=== PATIENT | female | born 1965 | race Caucasian/White ===

== ENCOUNTER 2016-10-25 13:43 | Inpatient (IN) ==
--- NOTE | 2016-10-25 14:07 | Emergency Department Note ---
Santiago Dior Emily, am scribing for, and in the presence of, Trevor Rendon MD 14:01. Julieta Dior James D, MD, personally performed the services described in this documentation, ascribed by Fernanda Henderson in my presence, and it is both accurate and complete 401 . Arrival - Arrival Chief Complaint: Shortness of Breath Stated Complaint: low SAT/in 80's/sent by clinic ED Nursing Triage Note: pt was at wound care when she had low sats. pt has been sob since monday. +porductive cough Mode of Arrival: Ambulatory Limitations: No Limitations Source: Patient Time Seen by Provider: 10/25/16 13:52 - History of Present Illness HPI Narrative: Pt is a 51 y/o female who came to ED from Wound Care for further evaluation of low stats. Pt states having swelling in lower extremities but not as bad today. Pt is having SOB since Monday and productive cough, but denies fever or chest pain. Pt reports glucose is elevated at 350 and has had hx of kidney failure, along with being told she had CHF. Pt notes one month ago she was treated for bronchitis with steroids and abx. Pt is being followed by [facility] for wound care. Onset (ago): hour(s) Consistency: constant Severity: mild, moderate Severity scale (1-10): 4 Quality: fullness Allergies/Adverse Reactions: Allergies Allergy/AdvReac Type Severity Reaction Status Date / Time sulfacetamide Allergy Unknown Verified 10/13/15 15:34 [From Sulfacet-R] sulfur dioxide Allergy Unknown Verified 05/19/16 09:10 Review of System - Review of System 12 point system: reviewed and no additional remarkable complaints except as stated - Review of System Constitutional: Absent: fever Respiratory: Present: cough (productive), respiratory distress (SOB) Cardiovascular: Present: edema (lower extremities). Absent: chest pain Gastrointestinal: Absent: abdominal pain, nausea, vomiting Musculoskeletal: Absent: arm pain Skin: Absent: rash Neurological: Absent: headache Medical,Surgical,& Family Hx - Social History Smoking Status: Never smoker Frequency of Alcohol Use: None Type of Drug Use: None Marital Status: Single Functional capacity: independent ambulation Exam Vital Signs: Vital Signs Temperature 98.0 F 10/25/16 14:00 Pulse Rate 68 10/25/16 14:30 Respiratory Rate 24 10/25/16 14:30 Blood Pressure 137/61 10/25/16 14:30 O2 Sat by Pulse Oximetry 96 10/25/16 14:30 GENERAL: This is a well-nourished well-developed white female in no apparent distress. VITAL SIGNS: Reviewed HEENT: Head is atraumatic and normocephalic. Pupils are equal round react to light. Extraocular movements are intact. Oropharynx is benign with moist mucous membranes. NECK: Neck is soft and supple without tenderness. There are no masses. There is no lymphadenopathy. LUNGS: Bibasilar rhonchi. Chest rises symmetrically. There is no chest wall tenderness. CV: Heart is regular rate and rhythm without murmurs rubs or gallops. ABDOMEN: Abdomen is soft, nontender to palpation. There are no abdominal abnormal masses palpated. There is no organomegaly. Bowel sounds are present and active. SKIN: Skin is warm and dry. No rash. EXTREMITIES: Patient has full range of motion without tenderness. There is 1-2 + pitting pedal edema. NEUROLOGIC: Awake alert and oriented 4. Cranial nerves II through XII are grossly intact. Motor is 5 over 5 in all extremities bilaterally. Course - Consultations Consultation #1: Discussed with hospitalist. Patient will be admitted to their service. Time: 15:36 Results - Labs CBC & BMP: 10/25/16 14:28 10/25/16 14:28 Lab Results: I have reviewed the patients labs Labs: Laboratory Tests 10/25/16 14:28 WBC 9.0 RBC 3.37 L Hgb 9.3 L Hct 28.4 L MCV 84.3 L Plt Count 239 Neut % (Auto) 74.0 H Lymph % (Auto) 16.8 L Laboratory Tests 10/25/16 10/25/16 10/25/16 14:28 14:28 14:28 INR 2.6 PT Patient/Control Mix 29.1 Circ Anticoag PTT 45.4 H Sodium 136 Potassium 3.9 Chloride 101 Carbon Dioxide 26 BUN 24 H Creatinine 1.60 H GFR Calculation 47 Glucose 237 H Lactic Acid Troponin I < 0.015 Total Protein 6.2 L Albumin 3.3 L Urine Color Yellow Urine Appearance Clear Urine pH 6.0 Ur Specific [place] 1.007 Urine Protein 100 Urine Glucose (UA) >=500 Urine Urobilinogen < 2.0 H Urine Leukocytes Moderate H Urine RBC 2 Urine WBC 5 Ur Squamous Epith Cells Occasional 10/25/16 14:28 INR PT Patient/Control Mix Circ Anticoag PTT Sodium Potassium Chloride Carbon Dioxide BUN Creatinine GFR Calculation Glucose Lactic Acid 1.6 Troponin I Total Protein Albumin Urine Color Urine Appearance Urine pH Ur Specific [place] Urine Protein Urine Glucose (UA) Urine Urobilinogen Urine Leukocytes Urine RBC Urine WBC Ur Squamous Epith Cells Laboratory Tests 10/25/16 14:28 B-Natriuretic Peptide 511 H - EKG EKG results: interpreted by ERMD - Impressions EKG: Normal sinus rhythm with rate of 68, occasional PVCs, nonspecific ST-T wave changes, normal axis. - Diagnostic Findings Procedure: Chest x-ray: image reviewed by me, report reviewed by me ( Cardiomegaly, old median sternotomy, increased pulmonary markings bilaterally.) Disposition Clinical Impression: Dyspnea, Diabetes mellitus, CHF (congestive heart failure), Chronic anticoagulation Case discussed with: patient Disposition: Still a Patient Condition: Stable Time of Disposition: 15:34
--- NOTE | 2016-10-25 14:20 | EKG Report ---
Stationary ECG Study [facility] ER Test Date: 10/25/2016 1:57:31 PM Pat Name: MAUDE VARELA Department: Room: Gender: F [employer]: : 1965 Requested by: Trevor Moran Order Number: [id number] Reading MD: TASHIA BRAGG Intervals [place] Rate: 68 P: 23 NH: 204 QRS: 37 QRSD: 102 T: 42 QT: 416 QTc: 433 Interpretive Statements SINUS RHYTHM WITH OCCASIONAL VENTRICULAR PREMATURE COMPLEXES Electronically Signed On 10-25-16 15:53:16 CDT by TASHIA BRAGG [email or web address]
--- NOTE | 2016-10-25 14:20 | XRay Report ---
XR chest 1V portable Indication: Shortness of breath. Chest one view: Comparison 04/07/2009. Cardiomegaly has developed with mild central pulmonary vascular congestion. Increased interstitial markings of peripheral lungs are more pronounced as well. Scattered calcified granulomata are present. No infiltrates. Right hemidiaphragm remains elevated. Median sternotomy wires again noted. Impression: CHF decompensation. PROCEDURE INTERPRETED AT [facility] DEPARTMENT OF RADIOLOGY Final Report Signed by: Leandro Morales M.D.
[2016-10-25 14:38] LABS: Basophils % 0.4 % (0.0-0.8); Eosinophils # 0.1 10*3/uL (0.0-0.87); Eosinophils % 0.9 % (0.00-10.9); Hematocrit 28.4 VOL% (35.7-47.0); Hemoglobin 9.3 GM/DL (12.0-16.0); Immature Granulocytes % 0.4 %; Immature Granulocytes Absolute 0.04 #; Lymphocytes # 1.5 10*3/uL (1.4-4.0); Lymphocytes % 16.8 % (21.3-54.2); Mean Corpuscular HGB Conc 32.7 GM/DL (32-36); Mean Corpuscular Hemoglobin 28 PG (27-34); Mean Corpuscular Volume 84.3 FL (87-102); Monocytes # 0.7 10*3/uL (0.11-0.8); Monocytes % 7.5 % (1.7-12.7); NRBC # 0.02 10*3/uL; Neutrophils # 6.6 10*3/uL (1.4-7.4); Platelet Count 239 T/CUMM (130-400); Red Blood Count 3.37 MC/CUMM (3.8-5.5); Red Cell Distribution Width 15.5 % (9.3-17.3)
[2016-10-25 14:49] LABS: INR 2.6
[2016-10-25 14:50] LABS: Apearance,Urine CLEAR (Clear); Bilirubin,Urine Negative (Negative); Blood, Urine Negative (Negative); Glucose,Urine (UA) >=500 mg/dL (Negative); Ketones,Urine Negative (Negative); Nitrite,Urine Negative (Negative); Protein,Urine 100 MG/DL; RBC,Urine 2 /HPF (0-4); Squamous Epithelial Cell,Urine Occasional /HPF (0-10); Urine Color Yellow (Yellow); Urine Specific Gravity 1.007 (1.001-1.035); Urine Urobilinogen < 2.0 EU/DL (0.2-1.0); WBC,Urine 5 /HPF (0-6)
[2016-10-25 14:53] LABS: PT Patient Result 29.1 SECS; Partial Thromboplastin Time 45.4 SECS (0-40)
[2016-10-25 15:03] LABS: Alanine Aminotransferase 23 U/L (13-56); Albumin 3.3 G/DL (3.4-5.0); Alkaline Phosphatase 57 U/L (45-117); Aspartate Amino Transferase 20 U/L (0-37); Blood Urea Nitrogen 24 MG/DL (7-18); Calcium 8.9 MG/DL (8.5-10.1); Glucose 237 MG/DL (74-106); Potassium 3.9 MMOL/L (3.5-5.1); Sodium 136 MMOL/L (136-145); Total Protein 6.2 G/DL (6.4-8.3); Troponin I Only < 0.015 NG/ML (0.00-0.045)
[2016-10-25] MEDS ORDERED: FUROSEMIDE 40 MG/4 ML VIAL IV STA (15:05)
[2016-10-25] MEDS ORDERED: FUROSEMIDE 40 MG/4 ML VIAL ONE (15:29)
[2016-10-25] MEDS ORDERED: ZALEPLON 5 MG CAPSULE PO PRN (16:02)
[2016-10-25] MEDS ORDERED: DEXTROSE 50% 25 GM/50 ML SYRINGE IV PRN (16:02)
[2016-10-25] MEDS ORDERED: MAGNESIUM SULF RIDER 2 GM in PREMIX 1 EACH IV PRN (16:02)
[2016-10-25] MEDS ORDERED: GLUCAGON 1 MG VIAL IM PRN (16:02)
[2016-10-25] MEDS ORDERED: ONDANSETRON 4 MG/2 ML VIAL IV PRN (16:02)
[2016-10-25] MEDS ORDERED: ACETAMINOPHEN 325 MG TABLET PO PRN (16:02)
[2016-10-25] MEDS ORDERED: MAGNESIUM SULF RIDER 4 GM in PREMIX 1 EACH IV PRN (16:02)
--- NOTE | 2016-10-25 16:10 | Hospitalist History & Physical ---
Assessment and Plan (1) Chronic wound of extremity Status: Acute Current Visit: Yes (2) History of neuropathy Status: Acute Current Visit: Yes (3) Dyspnea Status: Acute Current Visit: Yes (4) Diabetes mellitus Status: Acute Current Visit: Yes (5) CHF (congestive heart failure) Status: Acute Current Visit: Yes (6) Chronic anticoagulation Status: Acute Assessment and plan: Our plan for this patient will be admitting her to our service. She will be admitted to telemetry. Will schedule her IV Lasix. She already received her first dose in the emergency room. Will consult [facility]. She is a patient of Dr. Quesada. Continue home meds as appropriate once they are confirmed. She is on chronic anticoagulation will need to continue to monitor her INR daily. We will monitor her chemistry daily and insulin sliding scale as needed Current Visit: Yes History of Present Illness Chief complaint: Shortness of breath History of present illness: Ms. Perez is a 51 year old female past medical history significant for congestive heart failure, pulmonary embolus, hypertension, heart rate flux, diabetes, neuropathy and chronic wounds who is been in her normal state of health for the past few days. Patient's has been noticing ever since Monday that she is requiring more pillows to sleep on at night.. She sleeps on for now. She is noticed that she has shortness of breath with least exertion an increase in her lower extremity swelling. She had just recently started back on her Lasix. In effort to get the fluid off. She went to her wound care clinic today. They noticed on her vital signs that her O2 sats were low. She was sent over here for further evaluation. I was consulted to admit her Allergies Allergy/AdvReac Type Severity Reaction Status Date / Time sulfacetamide Allergy Unknown Verified 10/13/15 15:34 [From Sulfacet-R] sulfur dioxide Allergy Unknown Verified 05/19/16 09:10 Medical,Surgical,& Family Hx - Medical History Cardio: History of: CHF, Hypertension Endocrine: History of: Diabetes Mellitus (NIDDM) Respiratory: History of: Pulmonary Embolism Other: History of: Miscellaneous Medical Problems (Chronic wounds and either COPD or asthma she does not know which) - Surgical History Additional Surgical History: Orthopedic procedure, tonsils and adenoids, hysterectomy, pulmonary embolus thrombectomy - Family History Family History: Reports;: Family Cancer, Family Diabetes, Family Heart Disease - Social History Smoking Status: Never smoker Frequency of Alcohol Use: None Type of Drug Use: None 12 point system: reviewed and no additional remarkable complaints except as stated Exam - Constitutional Vitals: Period Temp Pulse Resp BP Sys/Seay Pulse Ox Last 24 Hr 98.0 F-98.0 F 62-69 13-25 92-161/44-77 87-98 General appearance: over weight - Head Head exam: Present: normal inspection - Eye Eye exam: Present: EOMI Pupils: Present: VERONA - ENT ENT exam: Present: normal exam - Neck Neck exam: Present: normal inspection - Respiratory Respiratory exam: Present: rales - Cardiovascular Cardiovascular exam: Present: regular rate and rhythm - GI/Abdominal GI/Abdominal exam: Present: normal bowel sounds - Extremities Exam Extremities exam: Present: edema - Back Exam Back exam: Present: normal inspection - Neurological Exam Neurological exam: Present: alert, oriented X3 - Psychiatric Psychiatric exam: Present: normal affect, normal mood - Skin Skin exam: Present: normal color Results - Labs CBC & BMP: 10/25/16 14:28 10/25/16 14:28
[2016-10-25] MEDS ORDERED: INSULIN REGULAR 100 UNIT/ML SUBCUT SCH (18:00)
[2016-10-25] MEDS: INSULIN REGULAR 100 UNIT/ML SUBCUT SCH (22:00)
[2016-10-26] MEDS: GABAPENTIN 600 MG TABLET PO SCH ×3 (00:33→21:07)
[2016-10-26] MEDS: NORTRIPTYLINE 25 MG CAPSULE PO SCH ×3 (00:33→21:07)
[2016-10-26 05:29] LABS: Basophils # 0.1 10*3/uL (0.0-0.2); Basophils % 0.6 % (0.0-0.8); Eosinophils # 0.1 10*3/uL (0.0-0.87); Eosinophils % 1.4 % (0.00-10.9); Hematocrit 28.3 VOL% (35.7-47.0); Hemoglobin 8.9 GM/DL (12.0-16.0); Immature Granulocytes % 0.6 %; Immature Granulocytes Absolute 0.05 #; Lymphocytes # 1.6 10*3/uL (1.4-4.0); Lymphocytes % 18.3 % (21.3-54.2); Mean Corpuscular HGB Conc 31.4 GM/DL (32-36); Mean Corpuscular Hemoglobin 27 PG (27-34); Mean Corpuscular Volume 86.8 FL (87-102); Mean Platelet Volume 11.2 FL (9.6-12.0); Monocytes # 0.5 10*3/uL (0.11-0.8); Monocytes % 6.1 % (1.7-12.7); Neutrophils # 6.3 10*3/uL (1.4-7.4); Platelet Count 250 T/CUMM (130-400); Red Blood Count 3.26 MC/CUMM (3.8-5.5); Red Cell Distribution Width 15.5 % (9.3-17.3); White Blood Count 8.6 T/CUMM (4-12)
[2016-10-26 05:40] LABS: INR 2.2
[2016-10-26 05:48] LABS: PT Patient Result 24.8 SECS
[2016-10-26 06:19] LABS: Calcium 9.3 MG/DL (8.5-10.1); Osmolality,Calculated 285.8 MOS/KG (273-304)
--- NOTE | 2016-10-26 07:39 | Physician Query Form ---
CLICK EDIT DOCUMENT TO SELECT QUERY ANSWER --> OK --> SIGN Tova Ellis RN, CCDS Certified Clinical Bleacher [employer] W) [phone] (f) [phone] [email or web address] PROVIDERS: Make your selection(s) from the choices in EACH section by typing an "x" and enter comments in the comment section. Please use your independent medical judgment in providing your response. This request does not imply that any particular answer is desired or expected. CLINICAL INDICATORS: (Providers should not edit this section) The medical record indicates that the patient was admitted with acute CHF, SOB, BNP of 511# and the patient was treated with IV Lasix. Please provide further specificity regarding CHF. ACUITY: ( ) Acute ( ) Chronic (x) Acute on Chronic ( ) Clinically unable to determine TYPE: ( ) Systolic (HFrEF - heart failure with reduced systolic function/EF) (x ) Diastolic (HFpEF - heart failure with preserved systolic function/EF) ( ) Combined Systolic/Diastolic ( ) Other, please specify: ( ) Clinically unable to determine ( ) Past Medical History of Systolic CHF ( ) Past Medical History of Diastolic CHF ( ) Clinically unable to determine COMMENTS: PLEASE ALSO DOCUMENT RESPONSE IN PROGRESS NOTES AND/OR DISCHARGE SUMMARY Use of terms such as suspected, likely, or probable (associated with a specific diagnosis that is being evaluated, monitored, or treated as if it exists) are acceptable and can be restated in the discharge summary if not ruled out. MTDD
--- NOTE | 2016-10-26 07:40 | Physician Query Form ---
CLICK EDIT DOCUMENT TO SELECT QUERY ANSWER --> OK --> SIGN Tova Ellis RN, CCDS Certified Clinical Data Governance Consultant W) [phone] (f) [phone] [email or web address] PROVIDERS: Make your selection(s) from the choices in EACH section by typing an "x" and enter comments in the comment section. Please use your independent medical judgment in providing your response. This request does not imply that any particular answer is desired or expected. CLINICAL INDICATORS: (Providers should not edit this section) The medical record indicates that the patient was admitted with acute CHF, SOB, creatinine of 1.60 on the 15th and GFR of 47# on the 15th; Patient is being treated with Lasix for the CHF. Clarify which of the following most accurately represents the patient's renal status: ( ) Acute kidney injury (non-traumatic) ( ) Acute renal failure ( ) Acute renal failure with underlying Chronic Kidney Disease (CKD) - please provide stage below ( ) Acute renal failure with pathological renal lesion ( ) Acute renal failure with necrosis ( ) tubular ( ) medullary ( ) cortical (x ) CKD - please provide stage below ( ) End Stage Renal Disease ( ) Acute interstitial nephritis ( ) Hepatorenal syndrome ( ) Other, please specify: ( ) Clinically unable to determine Chronic Kidney Disease Stages Source: National Kid[employer] Foundation ( ) Stage I (eGFR > or = 90) ( ) Stage II (eGFR 60 - 89) (x ) Stage III (eGFR 30 - 59) ( ) Stage IV (eGFR 15 - 29) ( ) Stage V (eGFR < 15 or dialysis) COMMENTS: PLEASE ALSO DOCUMENT RESPONSE IN PROGRESS NOTES AND/OR DISCHARGE SUMMARY Use of terms such as suspected, likely, or probable (associated with a specific diagnosis that is being evaluated, monitored, or treated as if it exists) are acceptable and can be restated in the discharge summary if not ruled out. MTDD
[2016-10-26] MEDS ORDERED: amLODIPine 10 MG TABLET PO SCH (09:00)
[2016-10-26] MEDS ORDERED: NORTRIPTYLINE 75 MG CAPSULE PO SCH (09:00)
[2016-10-26] MEDS ORDERED: GABAPENTIN 300 MG CAPSULE PO SCH (09:00)
[2016-10-26] MEDS: FUROSEMIDE 40 MG/4 ML VIAL IV SCH ×2 (09:17→16:12)
[2016-10-26] MEDS: FENOFIBRATE 145 MG TABLET PO SCH (09:22)
[2016-10-26] MEDS: CETIRIZINE 10 MG TABLET PO SCH (09:23)
[2016-10-26] MEDS: INSULIN REGULAR 100 UNIT/ML SUBCUT SCH ×4 (09:23→21:08)
[2016-10-26] MEDS: ATORVASTATIN 20 MG TABLET PO SCH (09:23)
[2016-10-26] MEDS: METOPROLOL TARTRATE 100 MG TABLET PO SCH ×2 (09:23→21:07)
[2016-10-26] MEDS: PANTOPRAZOLE 40 MG TABLET PO SCH (09:23)
[2016-10-26 09:55] LABS: Basophils # 0.1 10*3/uL (0.0-0.2); Basophils % 0.6 % (0.0-0.8); Eosinophils # 0.1 10*3/uL (0.0-0.87); Hematocrit 28.4 VOL% (35.7-47.0); Immature Granulocytes % 0.3 %; Immature Granulocytes Absolute 0.03 #; Lymphocytes # 1.6 10*3/uL (1.4-4.0); Mean Corpuscular HGB Conc 31.7 GM/DL (32-36); Mean Corpuscular Hemoglobin 27 PG (27-34); Mean Corpuscular Volume 86.6 FL (87-102); Mean Platelet Volume 11.8 FL (9.6-12.0); Monocytes # 0.6 10*3/uL (0.11-0.8); Monocytes % 6.4 % (1.7-12.7); Neutrophils # 6.3 10*3/uL (1.4-7.4); Neutrophils % 72.7 % (38.7-73.9); Platelet Count 250 T/CUMM (130-400); Red Blood Count 3.28 MC/CUMM (3.8-5.5); Red Cell Distribution Width 15.7 % (9.3-17.3); White Blood Count 8.6 T/CUMM (4-12)
--- NOTE | 2016-10-26 09:58 | Cardiology Consult Note ---
Assessment and Plan - Time spent with patient Time spent with patient: Greater than 30 minutes (Due to assessment, plan, and documentation.) (1) CHF (congestive heart failure) Status: Acute Assessment and plan: See plan of care listed below. Current Visit: Yes (2) Hypertension Status: Chronic Assessment and plan: See plan of care listed below. Current Visit: Yes (3) Diabetes mellitus Status: Chronic Assessment and plan: See plan of care listed below. Current Visit: Yes (4) History of pulmonary embolus (PE) Status: Chronic Assessment and plan: See plan of care listed below. Current Visit: Yes (5) History of neuropathy Status: Chronic Assessment and plan: See plan of care listed below. Current Visit: Yes (6) Chronic anticoagulation Status: Chronic Assessment and plan: See plan of care listed below. Current Visit: Yes (7) Chronic wound of extremity Status: Chronic Assessment and plan: See plan of care listed below. Current Visit: Yes (8) Anemia Status: Chronic Assessment and plan: See plan of care listed below. Current Visit: Yes (9) Dyslipidemia Status: Chronic Assessment and plan: See plan of care listed below. Current Visit: Yes (10) Chronic renal insufficiency Status: Chronic Assessment and plan: See plan of care listed below. 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 Manzo by Dr. Villagomez PCP: Dr. Villagomez Ms. Perez is a 51 year old female with history of chronic anticoagulation due to history of pulmonary embolus, diabetic neuropathy. Risk factors are significant for: Hypertension, diabetes, dyslipidemia, sedentary lifestyle, obesity. She also has a history of chronic renal insufficiency and has been followed by Dr. Srinivasan Marcus in the past. She is a non-smoker. She reports that she was seen in the past by senior gl accountant Dr. White and was sent to [place] in 1996 for a pulmonary thromboendarterectomy due to chronic pulmonary emboli. 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 She was recently referred to Dr. Manzo by Dr. Gregg but reports that she was unable to make her September 2016 appointment due to having to take care of her mother. She was sent to the hospital yesterday from wound care to to shortness of breath and decreased oxygen saturations. Apparently, Ms. Perez has been having trouble with shortness of breath since Monday. She reports that she has had progressive dyspnea and had an isolated episode of chest heaviness on Monday that lasted for a few minutes before going away on its own. She states that she was anxious Monday because she felt as if she could not breathe. She had 4 pillow orthopnea but was so short of breath she slept sitting up in her recliner 2 nights in a row. She has also had progressive lower extremity edema and notes that over the last month she has gained approximately 20-25 pounds. She states that she has a left foot wound and goes to wound care for treatment. Yesterday, when she went to wound care she had her drive her because she was not feeling well and when she arrived the nurses noted that she was audibly wheezing and her oxygen saturations were 85-86%. Upon arrival to our facility, she was noted to have a BNP of 511 and chest x- ray was suggestive of CHF decompensation. She was started on diuresis with IV Lasix and admitted to hospitalist service and we were consulted to see her. She is anemic upon admission with current H&H 8.9 and 28.3. According to records, she was also anemic when she was hospitalized here back in 2009 but she was not aware of any history of anemia and is unsure whether or not this has been fully evaluated. Her INR is therapeutic at 2.2. Her creatinine is 1.8 today. Glucose levels are elevated and hemoglobin A1c was 10.1. She has had negative troponins. EKG shows sinus rhythm with occasional PVC. ASSESSMENT/PLAN: 1. CONGESTIVE HEART FAILURE - Continue diuresis with IV Lasix. Echocardiogram is pending. Dr. Limon to review results once completed. If echo reveals cardiomyopathy, anticipate further cardiac evaluation with stress testing or left heart catheterization. Will further discuss with Dr. Limon and await additional recommendations. 2. HYPERTENSION - Has been elevated since admission, now better controlled. Will continue to monitor and adjust accordingly. Continue Metoprolol. Will discontinue Norvasc and start her on Hydralazine and Imdur in the place of JAMES/ ARB as we are trying to avoid worsening her renal function. 3. DIABETES - She is on sliding scale insulin and accuchecks. Hemoglobin A1C 10.1. 4. HISTORY OF PULMONARY EMBOLUS - Continue anticoagulation with Coumadin. Goal INR 2-3. 5. HISTORY OF NEUROPATHY - Chronic. 6. CHRONIC ANTICOAGULATION - On Coumadin. INR is 2.2 today. We will continue to monitor. 7. CHRONIC LOWER EXTREMITY WOUND - Is routinely followed at wound care clinic. 8. ANEMIA - Chronic. Denies any recent melena, hematochezia, hematuria, or epistaxis. Will obtain occult stool and check anemia profile. 9. DYSLIPIDEMIA - Continue lipid lowering agent. Will check lipid panel in AM. 10. CHRONIC RENAL INSUFFICIENCY - Creatinine 1.8 today. Will continue to monitor BMP and avoid nephrotoxic agents. CC: Kera Garcia MD - Home Medications and Allergies Home Medications: Home Medications Medication Instructions Recorded Confirmed Type Atorvastatin [Lipitor] 20 mg PO DAILY 10/25/16 10/25/16 History Cetirizine HCl [Cetirizine Tab] 10 mg PO DAILY 10/25/16 10/25/16 History Fenofibrate [Tricor] 145 mg PO DAILY 10/25/16 10/25/16 History Fluticasone 50 Mcg Nasal [place] 1 spray BOTH NARES DAILY 10/25/16 10/25/16 History [Flonase Nasal [place]] Furosemide Tab [Lasix Tab] 20 mg PO DAILY PRN 10/25/16 10/25/16 History Gabapentin 600 mg PO BID 10/25/16 10/25/16 History Liraglutide [Victoza 2-Jad] 1.8 mg SUBCUT DAILY 10/25/16 10/25/16 History Metformin HCl 1,000 mg PO BID 10/25/16 10/25/16 History Metoprolol Tartrate Tab [Lopressor 100 mg PO BID 10/25/16 10/25/16 History Tab] Nortriptyline [Pamelor] 75 mg PO BID 10/25/16 10/25/16 History Omeprazole Magnesium [Prilosec Otc] 20 mg PO DAILY 10/25/16 10/25/16 History Warfarin [Coumadin] 10 mg PO DAILY@1800 10/25/16 10/25/16 History amLODIPine [Norvasc] 10 mg PO DAILY 10/25/16 10/25/16 History Allergies/Adverse Reactions: Allergies Allergy/AdvReac Type Severity Reaction Status Date / Time sulfacetamide Allergy Unknown Verified 10/13/15 15:34 [From Sulfacet-R] sulfur dioxide Allergy Unknown Verified 05/19/16 09:10 Review of systems: - Constitutional: Present: weight gain, fatigue, As per HPI. Absent: anorexia, chills, daytime sleepiness, excessive sweating, fever(s), frequent falls, headache(s), increased appetite, lethargy, malaise, night sweats, stops breathing during sleep, weakness, weight loss. - EENT Eyes: Present: As per HPI. Absent: blurry vision, diplopia, loss of vision Ears: Present: As per HPI. Absent: decreased hearing, ear discharge, ear pain Nose, mouth and throat: Present: As per HPI. Absent: dysphagia, epistaxis, headache(s), hoarseness, lip swelling, nasal congestion, neck mass, neck pain, sinus pressure, sore throat, throat swelling, tongue swelling, vertigo - Cardiovascular: Present: chest pain at rest, edema, dyspnea, dyspnea on exertion, as per HPI. Absent: chest pain with activity, claudication, diaphoresis, radiating jaw, neck or arm pain, lightheadedness, orthopnea, palpitations, PND - Respiratory: Present: dyspnea, dyspnea on exertion, wheezing, as per HPI. Absent: cough, hemoptysis, snoring, pain on inspiration - Gastrointestinal: Present: As per HPI. Absent: abdominal pain, bloating, change in bowel habits, constipation, diarrhea, heartburn, hematemesis, hematochezia, loose stools, melena, nausea, vomiting - Genitourinary: Present: As per HPI. Absent: difficulty urinating, dysuria, flank pain, hematuria, nocturia, urinary frequency, urinary incontinence - Musculoskeletal: Present: As per HPI. Absent: arthralgias, back pain, joint swelling, limited range of motion, muscle cramps, muscle weakness, myalgias - Neurological: Present: As per HPI. Absent: abnormal gait, abnormal speech, behavioral changes, confusion, convulsions, disequilibrium, dizziness, focal weakness, frequent falls, headache(s), memory loss, numbness, paresthesias, radicular pain, syncope, tremor(s) - Psychiatric: Present: As per HPI. Absent: anxiety, confusion, depression, panic attacks - Endocrine: Present: fatigue, As per HPI. Absent: cold intolerance, heat intolerance, polydipsia, polyphagia - Hematologic/Lymphatic: Present: easy bruising, As per HPI. Absent: easy bleeding, lymphadenopathy Medical,Surgical,& Family Hx - Medical History Cardio: History of: CHF, Hypertension Endocrine: History of: Diabetes Mellitus (NIDDM), Dyslipidemia Respiratory: History of: Pulmonary Embolism, Respiratory Problems Hematology: History of: Clotting Problems Other: History of: Miscellaneous Medical Problems (Chronic wounds and either COPD or asthma she does not know which) - Surgical History Cardiac Surgeries: Patient Denies: Cardiac Catheterization - Family History Family History: Reports;: Family Cancer, Family Diabetes, Family Heart Disease - Social History Smoking Status: Never smoker Frequency of Alcohol Use: Rarely Type of Drug Use: None Marital Status: Lives With:: Spouse Functional capacity: independent ambulation Physical Examination Vital Signs Temp Pulse Resp BP Pulse Ox 98.0 F 69 20 161/72 87 L 10/25/16 13:45 10/25/16 13:45 10/25/16 13:45 10/25/16 13:45 10/25/16 13:45 Exam: General appearance: Pleasant and cooperative. Overweight, no acute distress. O2 via NBP. Head exam: Present: normal inspection, normocephalic, atraumatic. Absent: hematoma, laceration Eye exam: Present: EOMI. Absent: conjunctival injection, nystagmus, periorbital swelling, scleral icterus, laceration to eyelids Pupils: Present: PERRL. Absent: constricted, dilated, fixed, irregular, unequal ENT exam: Present: normal exam, normal external ear exam Neck exam: Present: normal inspection. Absent: lymphadenopathy, meningismus, tenderness, thyromegaly, carotid bruit Respiratory exam: Present: clear to auscultation bilaterally. Absent: accessory muscle use, chest wall tenderness, rhonchi, wheezing. Cardiovascular exam: Present: regular rate and rhythm. Absent: gallop, JVD, rubs GI/Abdominal exam: Present: normal bowel sounds, soft. Absent: distended, firm , guarding, hernia, mass, tenderness, rebound. Extremities exam: Present: normal inspection, normal capillary refill. Upper extremity pulses 2+. Lower extremity pulses 2+. 1+ pitting edema to BLE. Absent : calf tenderness Musculoskeletal: Present: No Fluid Collection, No Pain, Normal Range of Motion Back exam: Present: normal inspection. Absent: muscle spasm, vertebral tenderness Neurological exam: Present: alert, oriented X3, grossly intact without resting or essential tremor Psychiatric exam: Present: normal affect, normal mood Skin exam: Present: normal color, warm, dry, intact. Absent: cyanosis, diaphoretic, rash, urticaria Result/EKG - Labs CBC & BMP: 10/26/16 09:38 10/26/16 05:12 Lab Results: I have reviewed the past 24 hour labs Labs: Laboratory Results - last 24 hr 10/25/16 10/25/16 10/25/16 14:28 14:28 14:28 WBC 9.0 RBC 3.37 L Hgb 9.3 L Hct 28.4 L MCV 84.3 L MCH 28 MCHC 32.7 RDW 15.5 Plt Count 239 MPV 11.0 Neut % (Auto) 74.0 H Lymph % (Auto) 16.8 L [place] % (Auto) 7.5 Eos % (Auto) 0.9 Baso % (Auto) 0.4 Neut # (Auto) 6.6 Lymph # (Auto) 1.5 [place] # (Auto) 0.7 Eos # (Auto) 0.1 Baso # (Auto) 0.0 Immature Gran % 0.4 Nucleated RBC % 0.2 Immature Gran # 0.04 Nucleated RBCs # 0.02 Immature Plt Fraction 0.0 INR 2.6 PT Patient/Control Mix 29.1 Circ Anticoag PTT 45.4 H Sodium Potassium Chloride Carbon Dioxide Anion Gap BUN Creatinine GFR Calculation BUN/Creatinine Ratio Glucose POC Glucose Hemoglobin A1c Calculated Osmolality Lactic Acid Calcium Magnesium Total Bilirubin AST ALT Alkaline Phosphatase Troponin I B-Natriuretic Peptide Total Protein Albumin Globulin Albumin/Globulin Ratio Urine Color Yellow Urine Appearance Clear Urine pH 6.0 Ur Specific Sun 1.007 Urine Protein 100 Urine Glucose (UA) >=500 Urine Ketones Negative Urine Blood Negative Urine Nitrate Negative Urine Bilirubin Negative Urine Urobilinogen < 2.0 H Urine Leukocytes Moderate H Urine RBC 2 Urine WBC 5 Ur Squamous Epith Cells Occasional Ur Culture Indicated? Results to follow 10/25/16 10/25/16 10/25/16 14:28 14:28 14:28 WBC RBC Hgb Hct MCV MCH MCHC RDW Plt Count MPV Neut % (Auto) Lymph % (Auto) [place] % (Auto) Eos % (Auto) Baso % (Auto) Neut # (Auto) Lymph # (Auto) [place] # (Auto) Eos # (Auto) Baso # (Auto) Immature Gran % Nucleated RBC % Immature Gran # Nucleated RBCs # Immature Plt Fraction INR PT Patient/Control Mix Circ Anticoag PTT Sodium 136 Potassium 3.9 Chloride 101 Carbon Dioxide 26 Anion Gap 12.9 BUN 24 H Creatinine 1.60 H GFR Calculation 47 BUN/Creatinine Ratio 15.00 Glucose 237 H POC Glucose Hemoglobin A1c Calculated Osmolality 283.0 Lactic Acid 1.6 Calcium 8.9 Magnesium Total Bilirubin 0.90 AST 20 ALT 23 Alkaline Phosphatase 57 Troponin I < 0.015 B-Natriuretic Peptide 511 H Total Protein 6.2 L Albumin 3.3 L Globulin 2.9 Albumin/Globulin Ratio 1.1 Urine Color Urine Appearance Urine pH Ur Specific Sun Urine Protein Urine Glucose (UA) Urine Ketones Urine Blood Urine Nitrate Urine Bilirubin Urine Urobilinogen Urine Leukocytes Urine RBC Urine WBC Ur Squamous Epith Cells Ur Culture Indicated? 10/25/16 10/25/16 10/25/16 16:14 18:51 20:58 WBC RBC Hgb Hct MCV MCH MCHC RDW Plt Count MPV Neut % (Auto) Lymph % (Auto) [place] % (Auto) Eos % (Auto) Baso % (Auto) Neut # (Auto) Lymph # (Auto) [place] # (Auto) Eos # (Auto) Baso # (Auto) Immature Gran % Nucleated RBC % Immature Gran # Nucleated RBCs # Immature Plt Fraction INR PT Patient/Control Mix Circ Anticoag PTT Sodium Potassium Chloride Carbon Dioxide Anion Gap BUN Creatinine GFR Calculation BUN/Creatinine Ratio Glucose POC Glucose 272 H Hemoglobin A1c Calculated Osmolality Lactic Acid Calcium Magnesium 1.9 Total Bilirubin AST ALT Alkaline Phosphatase Troponin I < 0.015 B-Natriuretic Peptide Total Protein Albumin Globulin Albumin/Globulin Ratio Urine Color Urine Appearance Urine pH Ur Specific Sun Urine Protein Urine Glucose (UA) Urine Ketones Urine Blood Urine Nitrate Urine Bilirubin Urine Urobilinogen Urine Leukocytes Urine RBC Urine WBC Ur Squamous Epith Cells Ur Culture Indicated? 10/25/16 10/26/16 10/26/16 22:42 05:12 05:12 WBC 8.6 RBC 3.26 L Hgb 8.9 L Hct 28.3 L MCV 86.8 L MCH 27 MCHC 31.4 L RDW 15.5 Plt Count 250 MPV 11.2 Neut % (Auto) 73.0 Lymph % (Auto) 18.3 L [place] % (Auto) 6.1 Eos % (Auto) 1.4 Baso % (Auto) 0.6 Neut # (Auto) 6.3 Lymph # (Auto) 1.6 [place] # (Auto) 0.5 Eos # (Auto) 0.1 Baso # (Auto) 0.1 Immature Gran % 0.6 Nucleated RBC % 0.0 Immature Gran # 0.05 Nucleated RBCs # 0.00 Immature Plt Fraction 0.0 INR PT Patient/Control Mix Circ Anticoag PTT Sodium 137 Potassium 4.0 Chloride 100 Carbon Dioxide 27 Anion Gap 14.0 BUN 26 H Creatinine 1.80 H GFR Calculation 42 BUN/Creatinine Ratio 14.00 Glucose 237 H POC Glucose Hemoglobin A1c Calculated Osmolality 285.8 Lactic Acid Calcium 9.3 Magnesium Total Bilirubin AST ALT Alkaline Phosphatase Troponin I < 0.015 B-Natriuretic Peptide Total Protein Albumin Globulin Albumin/Globulin Ratio Urine Color Urine Appearance Urine pH Ur Specific Sun Urine Protein Urine Glucose (UA) Urine Ketones Urine Blood Urine Nitrate Urine Bilirubin Urine Urobilinogen Urine Leukocytes Urine RBC Urine WBC Ur Squamous Epith Cells Ur Culture Indicated? 10/26/16 10/26/16 10/26/16 05:12 05:12 07:43 WBC RBC Hgb Hct MCV MCH MCHC RDW Plt Count MPV Neut % (Auto) Lymph % (Auto) [place] % (Auto) Eos % (Auto) Baso % (Auto) Neut # (Auto) Lymph # (Auto) [place] # (Auto) Eos # (Auto) Baso # (Auto) Immature Gran % Nucleated RBC % Immature Gran # Nucleated RBCs # Immature Plt Fraction INR 2.2 PT Patient/Control Mix 24.8 Circ Anticoag PTT Sodium Potassium Chloride Carbon Dioxide Anion Gap BUN Creatinine GFR Calculation BUN/Creatinine Ratio Glucose POC Glucose 254 H Hemoglobin A1c 10.1 H Calculated Osmolality Lactic Acid Calcium Magnesium Total Bilirubin AST ALT Alkaline Phosphatase Troponin I B-Natriuretic Peptide Total Protein Albumin Globulin Albumin/Globulin Ratio Urine Color Urine Appearance Urine pH Ur Specific Sun Urine Protein Urine Glucose (UA) Urine Ketones Urine Blood Urine Nitrate Urine Bilirubin Urine Urobilinogen Urine Leukocytes Urine RBC Urine WBC Ur Squamous Epith Cells Ur Culture Indicated? - EKG EKG results: interpreted by me, sinus rhythm
[2016-10-26 10:15] LABS: Folate 15.6 NG/ML (5.4-24.0); Vitamin B12 247 PG/ML (211-911)
[2016-10-26] MEDS: FLUTICASONE 50 MCG NASAL SPRAY 16 GM BOTTLE BOTH NARES SCH (10:47)
[2016-10-26 11:24] LABS: Sedimentation Rate-Westergren 89 MM/HR (0-30)
--- NOTE | 2016-10-26 14:53 | Hospitalist Progress Note ---
Assessment and Plan - Time spent with patient Time spent with patient: Less than 30 minutes (1) CHF (congestive heart failure) Status: Acute Assessment and plan: Continue IV Lasix twice daily. Patient reports that she is feeling better today after having an increased urine output of approximately 800 cc. She still complains of shortness of breath and is noticeably winded. Continue oxygen. Repeat chest x-ray in a.m. Results of echocardiogram and carotid Doppler is pending. Cardiology is following. Current Visit: Yes (2) Diabetes mellitus Status: Chronic Assessment and plan: Hemoglobin A1c is 10.1%. Patient is currently on sliding scale insulin per protocol with Accu-Cheks before meals at bedtime. Glucose remains elevated. Consider adding a long-acting basal insulin. We are holding metformin due to acute on chronic kidney failure. Current Visit: Yes (3) Chronic anticoagulation Status: Chronic Assessment and plan: Patient is on Coumadin. INR today is 2.2. Continue to monitor PT INR Current Visit: Yes (4) Hypertension Status: Chronic Assessment and plan: Currently well controlled on current medications. Current Visit: Yes (5) Chronic renal insufficiency Status: Chronic Assessment and plan: Avoid nephrotoxic agents. Continue to monitor BMP daily. Current Visit: Yes (6) Chronic wound of extremity Status: Chronic Current Visit: Yes Hospitalist: Subjective Interval history: Patient seen and examined today. She was awake alert and oriented 3, sitting in bed and in no apparent distress. Patient was noticeably short of breath on 2 L per nasal cannula. She does report that she is feeling better today than she did yesterday now that her urine output has increased. Breath sounds are decreased bilaterally. She does still have trace edema in her lower extremities bilaterally. She reports no pain. Results of the echocardiogram and carotid US are pending. Patient reports no acute events overnight. Exam - Constitutional Vitals: Period Temp Pulse Resp BP Sys/Seay Pulse Ox Last 24 Hr 97.8 F-98.6 F 61-72 18-25 116-194/44-81 91-99 Exam: General: No acute distress Heart: RRR; no gallops, murmurs, rubs, clicks Lungs: decreased breath sounds bilaterally; no wheezes Abdomen: NBS, soft, nontender, no masses Extremities: Trace to 1+ edema BLE, ulcer to the distal lateral aspect of the left plantar surface, no cyanosis Neuro: AAOx3, reflexes normal Results - Labs CBC & BMP: 10/26/16 09:38 10/26/16 05:12 Lab Results: I have reviewed the past 24 hour labs
[2016-10-26] MEDS: hydrALAZINE 25 MG TABLET PO SCH ×2 (16:12→21:07)
[2016-10-26] MEDS ORDERED: WARFARIN 10 MG TABLET PO SCH (18:00)
[2016-10-26] MEDS ORDERED: WARFARIN 5 MG TABLET PO SCH (18:00)
[2016-10-26] MEDS ORDERED: WARFARIN 5 MG TABLET ONE (18:03)
[2016-10-26] MEDS: WARFARIN 10 MG TABLET PO SCH (18:08)
--- NOTE | 2016-10-26 21:40 | ECHO Report ---
Shruthi Perez Exam Date: 10/26/2016 09:37 Referring Physician: Technologist: Saray Badillo Age: 51 Ht (in): 67 Wt (lb): 262 Gender: F Exam Location: [facility] Echo Indications: chronic wound of extremity, hx. neuropathy, dyspnea, NIDDM, CHF, anticoagulation, chronic SOB BP: 148 / 68 HR: 70 Rhythm: Sinus Technical Quality: Good IMPRESSIONS Mild concentric left ventricular hypertrophy. Left ventricular ejection fraction is estimated at >55 %. Mild LAE. Trace mitral valve regurgitation. Trace tricuspid valve regurgitation. RV systolic pressure 58-68 mmHg. MEASUREMENTS (Male / Female) Normal Values 2D ECHO LV Diastolic Diameter PLAX 4.3 cm 4.2 - 5.9 / 3.9 - 5.3 cm LV Systolic Diameter PLAX 2.8 cm LV Fractional Shortening PLAX 35.0 % IVS Diastolic Thickness 1.1 cm 0.6 - 1.0 / 0.6 - 0.9 cm LVPW Diastolic Thickness 1.2 cm 0.6 - 1.0 / 0.6 - 0.9 cm RV Internal Dim ED PLAX 2.3 cm Aortic Root Diameter 2.7 cm LA Systolic Diameter LX 4.4 cm 3.0 - 4.0 / 2.7 - 3.8 cm DOPPLER TR Peak Velocity 382.0 cm/s TR Peak Gradient 58.4 mmHg FINDINGS Left Ventricle Normal left ventricular cavity size. Mild concentric left ventricular hypertrophy. Left ventricular ejection fraction is estimated at >55 %. Right Ventricle Normal right ventricular size. Right Atrium Normal right atrial size. Left Atrium Mild LAE Mitral Valve Morphologically normal mitral valve. Trace mitral valve regurgitation. Aortic Valve The aortic valve is trileaflet and has normal motion. Tricuspid Valve Morphologically normal tricuspid valve. Trace tricuspid valve regurgitation. RV systolic pressure 58-68 mmHg Pulmonic Valve Morphologically normal pulmonic valve. Pericardium No pericardial effusion. Aorta Normal size aortic root and proximal ascending aorta. Sam Limon MD (Electronically Signed) Final Date: 26 October 2016 21:39
[2016-10-27 05:24] LABS: Basophils % 0.7 % (0.0-0.8); Eosinophils # 0.2 10*3/uL (0.0-0.87); Eosinophils % 3.1 % (0.00-10.9); Hematocrit 28.1 VOL% (35.7-47.0); Hemoglobin 8.7 GM/DL (12.0-16.0); Immature Granulocytes % 0.6 %; Immature Granulocytes Absolute 0.03 #; Lymphocytes # 1.7 10*3/uL (1.4-4.0); Lymphocytes % 30.9 % (21.3-54.2); Mean Corpuscular Hemoglobin 27 PG (27-34); Mean Corpuscular Volume 86.7 FL (87-102); Mean Platelet Volume 11.7 FL (9.6-12.0); Monocytes # 0.5 10*3/uL (0.11-0.8); Monocytes % 9.1 % (1.7-12.7); Neutrophils % 55.6 % (38.7-73.9); Platelet Count 229 T/CUMM (130-400); Red Blood Count 3.24 MC/CUMM (3.8-5.5); Red Cell Distribution Width 15.5 % (9.3-17.3); White Blood Count 5.4 T/CUMM (4-12)
[2016-10-27 05:48] LABS: Calcium 8.9 MG/DL (8.5-10.1); Osmolality,Calculated 287.5 MOS/KG (273-304)
[2016-10-27 06:03] LABS: INR 2.8
[2016-10-27 06:09] LABS: PT Patient Result 32.1 SECS
[2016-10-27 06:11] LABS: Risk Ratio 2.18; VLDL CHOLESTEROL 31.2 MG/DL
--- NOTE | 2016-10-27 08:16 | XRay Report ---
2 view chest. Indication: Pulmonary edema. Comparison: October 25, 2016. The heart is mildly enlarged but decreased in size. Post median sternotomy. The pulmonary vasculature shows improvement. The interstitial lung markings show improvement. No pneumothorax. Mild atelectasis at the left base. Impression: Interval improvement in the findings of congestive heart failure. PROCEDURE INTERPRETED AT [facility] DEPARTMENT OF RADIOLOGY Final Report Signed by: Dr. Lia Henry
[2016-10-27] MEDS: METOPROLOL TARTRATE 100 MG TABLET PO SCH ×2 (08:25→22:39)
[2016-10-27] MEDS: PANTOPRAZOLE 40 MG TABLET PO SCH (08:25)
[2016-10-27] MEDS: ISOSORBIDE MONONITRATE 30 MG TABLET PO SCH (08:26)
[2016-10-27] MEDS: NORTRIPTYLINE 25 MG CAPSULE PO SCH ×2 (08:26→22:38)
[2016-10-27] MEDS: GABAPENTIN 600 MG TABLET PO SCH ×2 (08:26→22:38)
[2016-10-27] MEDS: hydrALAZINE 25 MG TABLET PO SCH ×3 (08:26→22:39)
[2016-10-27] MEDS: ATORVASTATIN 20 MG TABLET PO SCH (08:26)
[2016-10-27] MEDS: CETIRIZINE 10 MG TABLET PO SCH (08:27)
[2016-10-27] MEDS: FENOFIBRATE 145 MG TABLET PO SCH (08:27)
[2016-10-27] MEDS: INSULIN REGULAR 100 UNIT/ML SUBCUT SCH ×4 (08:28→22:38)
[2016-10-27] MEDS: FUROSEMIDE 40 MG/4 ML VIAL IV SCH (08:29)
[2016-10-27] MEDS: FLUTICASONE 50 MCG NASAL SPRAY 16 GM BOTTLE BOTH NARES SCH (08:46)
[2016-10-27 09:05] LABS: Hemoglobin A1 (Alkaline) 97.1 % (96.5-98.5); Hemoglobin A2 (Alkaline) 2.9 % (1.5-3.5)
--- NOTE | 2016-10-27 09:05 | Discharge Summary ---
Hospital Course - Time spent with patient Time with patient DS: Greater than 30 minutes (Total discharge time for this patient, including [id number]-on-wnut time, clinical documentation, medication reconciliation, and discharge planning was 42 minutes.) Discharge Plan - Discharge Data Disposition: Disch To Home/Self Care Condition at Discharge: Stable Discharge Diet: advance to your usual diet Activity: resume usual activities as tolerated Hygiene: no restrictions Contact your physician if you experience:: Shortness of breath - Discharge Medications New hydrALAZINE TAB [Apresoline Tab] 25 mg PO TID #90 tablet Isosorbide Mononitrate [Imdur] 15 mg PO DAILY #30 tablet Continue Cetirizine HCl [Cetirizine Tab] 10 mg PO DAILY Nortriptyline [Pamelor] 75 mg PO BID Atorvastatin [Lipitor] 20 mg PO DAILY Metoprolol Tartrate Tab [Lopressor Tab] 100 mg PO BID Fluticasone 50 Mcg Nasal [place] [Flonase Nasal [place]] 1 spray BOTH NARES DAILY Omeprazole Magnesium [Prilosec Otc] 20 mg PO DAILY Metformin HCl 1,000 mg PO BID Gabapentin 600 mg PO BID Liraglutide [Victoza 2-Jad] 1.8 mg SUBCUT DAILY Warfarin [Coumadin] 10 mg PO DAILY@1800 Furosemide Tab [Lasix Tab] 20 mg PO DAILY PRN PRN Reason: FLUID Fenofibrate [Tricor] 145 mg PO DAILY Discontinued amLODIPine [Norvasc] 10 mg PO DAILY - Follow Up or Referral - Forms/Instructions Additional Discharge Instructions: Follow-up with your primary care physician Dr. Gregg in 1 week Exam - Constitutional Vitals: Period Temp Pulse Resp BP Sys/Seay Pulse Ox Last 24 Hr 96.7 F-98.9 F 60-82 18-24 126-160/64-84 89-95 Discharge Results Procedures and tests throughout hospitalization: Pending Orders 10/25/16 Urine Culture Routine 10/26/16 05:09 Anemia Profile Routine 10/26/16 09:37 Occult Blood, Stool Routine 10/28/16 04:00 BMP w/ Mg [Basic Metabolic Panel w/Mg] IN AM BNP [B-Type Natriuretic Peptide] IN AM Comp Blood Count Auto Diff IN AM Prothrombin Time INR IN AM Labs on day of discharge: Labs from last 24 hours 10/27/16 10/27/16 10/27/16 07:37 04:40 04:40 WBC RBC Hgb Hct MCV MCH MCHC RDW Plt Count MPV Neut % (Auto) Lymph % (Auto) [place] % (Auto) Eos % (Auto) Baso % (Auto) Neut # (Auto) Lymph # (Auto) [place] # (Auto) Eos # (Auto) Baso # (Auto) Immature Gran % Nucleated RBC % Immature Gran # Nucleated RBCs # Anemia Panel Interp Immature Plt Fraction ESR Westergren Absolute Retic Percent Retic Retic Hgb Equivalent Hemoglobin A1 Hemoglobin A2 Hemoglobin C Hemoglobin D Hemoglobin E Hemoglobin F (ELP) Hemoglobin G Hemoglobin S Hgb ELP Interp INR PT Patient/Control Mix Sodium Potassium Chloride Carbon Dioxide Anion Gap BUN Creatinine GFR Calculation BUN/Creatinine Ratio Glucose POC Glucose 191 H Calculated Osmolality Calcium Magnesium Ferritin B-Natriuretic Peptide 188 H Triglycerides 156 H Cholesterol 146 LDL Cholesterol 59.0 VLDL Cholesterol 31.2 HDL Cholesterol 67 H Heart Disease Risk Ratio 2.18 Vitamin B12 Folate MARTA (IgG-AHG) MARTA, Polyspecific 10/27/16 10/27/16 10/27/16 04:40 04:40 04:40 WBC 5.4 D RBC 3.24 L Hgb 8.7 L Hct 28.1 L MCV 86.7 L MCH 27 MCHC 31.0 L RDW 15.5 Plt Count 229 MPV 11.7 Neut % (Auto) 55.6 Lymph % (Auto) 30.9 [place] % (Auto) 9.1 Eos % (Auto) 3.1 Baso % (Auto) 0.7 Neut # (Auto) 3.0 Lymph # (Auto) 1.7 [place] # (Auto) 0.5 Eos # (Auto) 0.2 Baso # (Auto) 0.0 Immature Gran % 0.6 Nucleated RBC % 0.0 Immature Gran # 0.03 Nucleated RBCs # 0.00 Anemia Panel Interp Immature Plt Fraction 0.0 ESR Westergren Absolute Retic Percent Retic Retic Hgb Equivalent Hemoglobin A1 Hemoglobin A2 Hemoglobin C Hemoglobin D Hemoglobin E Hemoglobin F (ELP) Hemoglobin G Hemoglobin S Hgb ELP Interp INR 2.8 PT Patient/Control Mix 32.1 D Sodium 139 Potassium 4.0 Chloride 101 Carbon Dioxide 31 Anion Gap 11.0 BUN 31 H Creatinine 1.90 H GFR Calculation 39 BUN/Creatinine Ratio 16.00 Glucose 172 H POC Glucose Calculated Osmolality 287.5 Calcium 8.9 Magnesium 2.0 Ferritin B-Natriuretic Peptide Triglycerides Cholesterol LDL Cholesterol VLDL Cholesterol HDL Cholesterol Heart Disease Risk Ratio Vitamin B12 Folate MARTA (IgG-AHG) MARTA, Polyspecific 10/26/16 10/26/16 10/26/16 19:41 15:43 11:52 WBC RBC Hgb Hct MCV MCH MCHC RDW Plt Count MPV Neut % (Auto) Lymph % (Auto) [place] % (Auto) Eos % (Auto) Baso % (Auto) Neut # (Auto) Lymph # (Auto) [place] # (Auto) Eos # (Auto) Baso # (Auto) Immature Gran % Nucleated RBC % Immature Gran # Nucleated RBCs # Anemia Panel Interp Immature Plt Fraction ESR Westergren Absolute Retic Percent Retic Retic Hgb Equivalent Hemoglobin A1 Hemoglobin A2 Hemoglobin C Hemoglobin D Hemoglobin E Hemoglobin F (ELP) Hemoglobin G Hemoglobin S Hgb ELP Interp INR PT Patient/Control Mix Sodium Potassium Chloride Carbon Dioxide Anion Gap BUN Creatinine GFR Calculation BUN/Creatinine Ratio Glucose POC Glucose 305 H 336 H 343 H Calculated Osmolality Calcium Magnesium Ferritin B-Natriuretic Peptide Triglycerides Cholesterol LDL Cholesterol VLDL Cholesterol HDL Cholesterol Heart Disease Risk Ratio Vitamin B12 Folate MARTA (IgG-AHG) MARTA, Polyspecific 10/26/16 10/26/16 10/26/16 09:38 09:38 05:09 WBC 8.6 RBC 3.28 L Hgb 9.0 L Hct 28.4 L MCV 86.6 L MCH 27 MCHC 31.7 L RDW 15.7 Plt Count 250 MPV 11.8 Neut % (Auto) 72.7 Lymph % (Auto) 19.0 L [place] % (Auto) 6.4 Eos % (Auto) 1.0 Baso % (Auto) 0.6 Neut # (Auto) 6.3 Lymph # (Auto) 1.6 [place] # (Auto) 0.6 Eos # (Auto) 0.1 Baso # (Auto) 0.1 Immature Gran % 0.3 Nucleated RBC % 0.0 Immature Gran # 0.03 Nucleated RBCs # 0.00 Anemia Panel Interp Pending Immature Plt Fraction 0.0 ESR Westergren 89 H Absolute Retic 0.1 Percent Retic 3.1 H Retic Hgb Equivalent 22.6 L Hemoglobin A1 Pending Hemoglobin A2 Pending Hemoglobin C Pending Hemoglobin D Pending Hemoglobin E Pending Hemoglobin F (ELP) Pending Hemoglobin G Pending Hemoglobin S Pending Hgb ELP Interp Pending INR PT Patient/Control Mix Sodium Potassium Chloride Carbon Dioxide Anion Gap BUN Creatinine GFR Calculation BUN/Creatinine Ratio Glucose POC Glucose Calculated Osmolality Calcium Magnesium Ferritin B-Natriuretic Peptide Triglycerides Cholesterol LDL Cholesterol VLDL Cholesterol HDL Cholesterol Heart Disease Risk Ratio Vitamin B12 247 Folate 15.6 MARTA (IgG-AHG) Negative MARTA, Polyspecific Negative 10/26/16 05:09 WBC RBC Hgb Hct MCV MCH MCHC RDW Plt Count MPV Neut % (Auto) Lymph % (Auto) [place] % (Auto) Eos % (Auto) Baso % (Auto) Neut # (Auto) Lymph # (Auto) [place] # (Auto) Eos # (Auto) Baso # (Auto) Immature Gran % Nucleated RBC % Immature Gran # Nucleated RBCs # Anemia Panel Interp Immature Plt Fraction ESR Westergren Absolute Retic Percent Retic Retic Hgb Equivalent Hemoglobin A1 Hemoglobin A2 Hemoglobin C Hemoglobin D Hemoglobin E Hemoglobin F (ELP) Hemoglobin G Hemoglobin S Hgb ELP Interp INR PT Patient/Control Mix Sodium Potassium Chloride Carbon Dioxide Anion Gap BUN Creatinine GFR Calculation BUN/Creatinine Ratio Glucose POC Glucose Calculated Osmolality Calcium Magnesium Ferritin 118.1 B-Natriuretic Peptide Triglycerides Cholesterol LDL Cholesterol VLDL Cholesterol HDL Cholesterol Heart Disease Risk Ratio Vitamin B12 Folate MARTA (IgG-AHG) MARTA, Polyspecific Preliminary micro results at discharge 10/25/16 Unknown Urine Culture - Preliminary Urine,Voided No Growth at 24 hours. DS: Provider Date of admission: 10/25/16 15:39 Primary care physician: . No PCP Attending physician on admission: Leandro Fowler MD Consults: 10/25/16 16:02 Consult to Physician [CONS] Routine Comment: Consulting Provider: Cardiology - [facility] 10/25/16 16:04 Consult to Wound Care - [place] [CONS] Routine Reason for Wound Care: Wound Care Management 10/26/16 09:48 Consult to [facility], Educator [CONS] Routine Reason for Chromium Plater: Diabetes Education Consult Comment: non-healing wound and high a1c Discharging clinician: Kera Garcia MD Expected date of discharge: 10/27/16
--- NOTE | 2016-10-27 09:17 | Hospitalist Progress Note ---
Assessment and Plan (1) Diabetes mellitus Status: Chronic Current Visit: Yes Qualifiers: Diabetes mellitus type: type 2 Diabetes mellitus complication status: with kidney complications Diabetes mellitus complication detail: with chronic kidney disease Diabetes mellitus intermediate frame tender insulin use: without usp use Chronic kidney disease stage: stage 2 (mild) Qualified Code(s): E11.22 - Type 2 diabetes mellitus with diabetic chronic kidney disease; N18.2 - Chronic kidney disease, stage 2 (mild) (2) CHF (congestive heart failure) Status: Acute Assessment and plan: Continue IV Lasix twice daily. Cardiology following. Diastolic dysfunction. Echo shows: Mild concentric left ventricular hypertrophy. Left ventricular ejection fraction is estimated at >55 %. Mild LAE. Trace mitral valve regurgitation. Trace tricuspid valve regurgitation. RV systolic pressure 58-68 mmHg Current Visit: Yes Qualifiers: Congestive heart failure type: diastolic Congestive heart failure chronicity: acute on chronic Qualified Code(s): I50.33 - Acute on chronic diastolic (congestive) heart failure (3) Chronic anticoagulation Status: Chronic Assessment and plan: On Coumadin for history of VTE. Therapeutic INR. Also has a Sammy filter Current Visit: Yes (4) Chronic wound of extremity Status: Chronic Assessment and plan: Followed by wound care. Current Visit: Yes (5) Hypertension Status: Chronic Current Visit: Yes Qualifiers: Hypertension type: essential hypertension Qualified Code(s): I10 - Essential (primary) hypertension (6) History of pulmonary embolus (PE) Status: Chronic Current Visit: Yes (7) Anemia Status: Chronic Current Visit: Yes Qualifiers: Chronic kidney disease stage: stage 2 (mild) (8) Dyslipidemia Status: Chronic Current Visit: Yes (9) Chronic renal insufficiency Status: Chronic Current Visit: Yes Qualifiers: Chronic kidney disease stage: stage 2 (mild) Qualified Code(s): N18.2 - Chronic kidney disease, stage 2 (mild) Hospitalist: Subjective Interval history: Patient seen and examined. No acute events overnight. Case discussed with nursing staff. Labs reviewed. The patient suffered a fall this morning in the bathroom. No loss of consciousness. No bleeding or head trauma. She remains hypoxic when off nasal cannula oxygen. She is down approximately 3 L. The patient does have a history of DVT and PE and is adequately anticoagulated with Coumadin with an INR of 2.8. She also has a [place] filter. I have a low suspicion for another VTE event given that information. Continue diuresis with Lasix and reevaluate for discharge tomorrow. I had initially consider discharging her today however once she was taken off oxygen, her O2 sats dropped into the high 80s. She was not previously on home oxygen therapy. Exam - Constitutional Vitals: Period Temp Pulse Resp BP Sys/Seay Pulse Ox Last 24 Hr 96.7 F-98.9 F 60-82 18-24 126-160/64-84 89-95 Exam: Constitutional System: Mild distress. No tremulousness. Less conversational dyspnea. Head: Normocephalic, atraumatic. Ears, Nose and Throat System: No pain or tenderness. No epistaxis or discharge Eyes System: Pupils equal, round, and reactive. Extraocular muscles intact. Neck: Supple, without adenopathy, No jugular venous distention. Respiratory System: Chest clear to auscultation. Cardiovascular System: Heart with regular rate and rhythm. No murmur. GI System: Abdomen soft, nontender. Normo active bowel sounds present. Musculoskeletal System: limbs with nonpitting pedal edema. Full distal pulses. Neurological System: No discernable sensory deficit. No aphasia Psychiatric System: Conversation is rational Results - Labs CBC & BMP: 10/27/16 04:40 10/27/16 04:40 Lab Results: I have reviewed the past 24 hour labs
--- NOTE | 2016-10-27 09:53 | Cardiology Progress Note ---
Assessment and Plan - Time spent with patient Time spent with patient: Less than 30 minutes (1) CHF (congestive heart failure) Status: Acute Assessment and plan: See plan of care listed below. Current Visit: Yes Qualifiers: Congestive heart failure type: diastolic Congestive heart failure chronicity: acute on chronic Qualified Code(s): I50.33 - Acute on chronic diastolic (congestive) heart failure (2) Hypertension Status: Chronic Assessment and plan: See plan of care listed below. Current Visit: Yes Qualifiers: Hypertension type: essential hypertension Qualified Code(s): I10 - Essential (primary) hypertension (3) Diabetes mellitus Status: Chronic Assessment and plan: See plan of care listed below. Current Visit: Yes Qualifiers: Diabetes mellitus type: type 2 Diabetes mellitus complication status: with kidney complications Diabetes mellitus complication detail: with chronic kidney disease Diabetes mellitus mcfp insulin use: without mcfp use Chronic kidney disease stage: stage 2 (mild) Qualified Code(s): E11.22 - Type 2 diabetes mellitus with diabetic chronic kidney disease; N18.2 - Chronic kidney disease, stage 2 (mild) (4) History of pulmonary embolus (PE) Status: Chronic Assessment and plan: See plan of care listed below. Current Visit: Yes (5) History of neuropathy Status: Chronic Assessment and plan: See plan of care listed below. Current Visit: Yes (6) Chronic anticoagulation Status: Chronic Assessment and plan: See plan of care listed below. Current Visit: Yes (7) Chronic wound of extremity Status: Chronic Assessment and plan: See plan of care listed below. Current Visit: Yes (8) Anemia Status: Chronic Assessment and plan: See plan of care listed below. Current Visit: Yes Qualifiers: Chronic kidney disease stage: stage 2 (mild) (9) Dyslipidemia Status: Chronic Assessment and plan: See plan of care listed below. Current Visit: Yes (10) Chronic renal insufficiency Status: Chronic Assessment and plan: See plan of care listed below. Current Visit: Yes Qualifiers: Chronic kidney disease stage: stage 2 (mild) Qualified Code(s): N18.2 - Chronic kidney disease, stage 2 (mild) Cardiology - PN: Subj Interval history: Environmental Services Supervisor: new to [facility], referred to Dr. Manzo by Dr. Villagomez PCP: Dr. Villagomez SUMMARY: Ms. Perez is a 51 year old female with history of chronic anticoagulation due to history of pulmonary embolus, diabetic neuropathy. Risk factors are significant for: Hypertension, diabetes, dyslipidemia, sedentary lifestyle, obesity. She also has a history of chronic renal insufficiency and has been followed by Dr. Srinivasan Marcus in the past. S/p pulmonary thromboendarterectomy in 1996. She was admitted to the hospital with dyspnea, decreased SpO2. Echocardiogram revealed EF 55%, mild LVH, mild LAE, trace MR, trace TR, RV systolic pressure 58-68 mmHg. We have been treating her for diastolic CHF. OCTOBER 27, 2016 UPDATE: She is much improved today. Lungs remain clear and lower extremity edema is much improved. She is still wearing her oxygen and reports she has not really taken it off since admission. Yesterday afternoon she was trialed without oxygen and her oxygen saturations dropped into the high 80s. The plan was to discharge her today, but with her oxygen levels continue to drop, this will be postponed. We will continue to try to wean her from oxygen as she was not on this at home prior to admission. ASSESSMENT/PLAN: 1. ACUTE DIASTOLIC CHF - Continue diuresis with IV Lasix. Echo revealed preserved EF. Continue beta-kayla, furosemide, statin. Will transition furosemide to PO and continue to try to wean her from O2. 2. HYPERTENSION - Has been elevated since admission, now better controlled. Will continue to monitor and adjust accordingly. Continue Metoprolol. She was started on Hydralazine and Imdur in the place of JAMES/ARB as we are trying to avoid worsening her renal function. 3. DIABETES - She is on sliding scale insulin and accuchecks. Hemoglobin A1C 10.1. 4. HISTORY OF PULMONARY EMBOLUS - Continue anticoagulation with Coumadin. Goal INR 2-3. 5. HISTORY OF NEUROPATHY - Chronic. 6. CHRONIC ANTICOAGULATION - On Coumadin. INR is 2.8 today. We will continue to monitor. 7. CHRONIC LOWER EXTREMITY WOUND - Is routinely followed at wound care clinic. 8. ANEMIA - Chronic. Denies any recent melena, hematochezia, hematuria, or epistaxis. Will obtain occult stool and check anemia profile. 9. DYSLIPIDEMIA - Continue lipid lowering agent. Will check lipid panel in AM. 10. CHRONIC RENAL INSUFFICIENCY - Creatinine 1.9 today. Will continue to monitor BMP and avoid nephrotoxic agents. Exam (Progress Note) - Constitutional Vitals: Period Temp Pulse Resp BP Sys/Seay Pulse Ox Last 24 Hr 96.7 F-98.9 F 60-82 18-24 126-160/64-84 89-95 Exam: General: Present: Appears Well, No Apparent Distress. Pleasant and cooperative. HEENT: Present: PERRL, Normocephaly, atraumatic. Mucus Membranes Moist. No jaundice noted. Conjunctiva moist and clear. Neck: Present: Supple Neck, Midline Trachea, No Masses, No Bruit, No tenderness Cardiac: Present: Regular Rate and Rhythm, No Murmur Lungs: Present: clear to auscultation bilaterally, no wheezes, rhonchi, rales. Neuro: Present: Awake, alert, and oriented x3. Moves all extremities well without hemiparesis or paralysis. Grossly Intact. Absent: Resting Tremor, Essential Tremor Abdomen: Present: Soft, Active Bowel Sounds, No Masses, Non-Tender, nondistended. No abdominal bruit or thrill noted. Skin: Present: Clear. Absent: Rash, No skin breakdown. Back: Normal inspection, no vertebral tenderness. Musculoskeletal: Present: No Fluid Collection, No Pain, Normal Range of Motion Extremities: Present: Normal Gait, No Clubbing, No Cyanosis, Upper Extr. Pulses 2+, Lower Extr. Pulses 2+, No edema. Capillary refill less than 3 seconds. Result/EKG - Labs CBC & BMP: 10/27/16 04:40 10/27/16 04:40 Lab Results: I have reviewed the past 24 hour labs Labs: Laboratory Results - last 24 hr 10/26/16 10/26/16 10/26/16 05:09 05:09 09:38 WBC 8.6 RBC 3.28 L Hgb 9.0 L Hct 28.4 L MCV 86.6 L MCH 27 MCHC 31.7 L RDW 15.7 Plt Count 250 MPV 11.8 Neut % (Auto) 72.7 Lymph % (Auto) 19.0 L [place] % (Auto) 6.4 Eos % (Auto) 1.0 Baso % (Auto) 0.6 Neut # (Auto) 6.3 Lymph # (Auto) 1.6 [place] # (Auto) 0.6 Eos # (Auto) 0.1 Baso # (Auto) 0.1 Immature Gran % 0.3 Nucleated RBC % 0.0 Immature Gran # 0.03 Nucleated RBCs # 0.00 Immature Plt Fraction 0.0 ESR Westergren 89 H Absolute Retic 0.1 Percent Retic 3.1 H Retic Hgb Equivalent 22.6 L Hemoglobin A1 97.1 Hemoglobin A2 2.9 Hemoglobin C Not Reportable Hemoglobin D Not Reportable Hemoglobin E Not Reportable Hemoglobin F (ELP) Not Reportable Hemoglobin G Not Reportable Hemoglobin S Not Reportable Hgb ELP Interp INR PT Patient/Control Mix Sodium Potassium Chloride Carbon Dioxide Anion Gap BUN Creatinine GFR Calculation BUN/Creatinine Ratio Glucose POC Glucose Calculated Osmolality Calcium Magnesium Ferritin 118.1 B-Natriuretic Peptide Triglycerides Cholesterol LDL Cholesterol VLDL Cholesterol HDL Cholesterol Heart Disease Risk Ratio Vitamin B12 247 Folate 15.6 MARTA (IgG-AHG) MARTA, Polyspecific 10/26/16 10/26/16 10/26/16 09:38 11:52 15:43 WBC RBC Hgb Hct MCV MCH MCHC RDW Plt Count MPV Neut % (Auto) Lymph % (Auto) [place] % (Auto) Eos % (Auto) Baso % (Auto) Neut # (Auto) Lymph # (Auto) [place] # (Auto) Eos # (Auto) Baso # (Auto) Immature Gran % Nucleated RBC % Immature Gran # Nucleated RBCs # Immature Plt Fraction ESR Westergren Absolute Retic Percent Retic Retic Hgb Equivalent Hemoglobin A1 Hemoglobin A2 Hemoglobin C Hemoglobin D Hemoglobin E Hemoglobin F (ELP) Hemoglobin G Hemoglobin S Hgb ELP Interp INR PT Patient/Control Mix Sodium Potassium Chloride Carbon Dioxide Anion Gap BUN Creatinine GFR Calculation BUN/Creatinine Ratio Glucose POC Glucose 343 H 336 H Calculated Osmolality Calcium Magnesium Ferritin B-Natriuretic Peptide Triglycerides Cholesterol LDL Cholesterol VLDL Cholesterol HDL Cholesterol Heart Disease Risk Ratio Vitamin B12 Folate MARTA (IgG-AHG) Negative MARTA, Polyspecific Negative 10/26/16 10/27/16 10/27/16 19:41 04:40 04:40 WBC 5.4 D RBC 3.24 L Hgb 8.7 L Hct 28.1 L MCV 86.7 L MCH 27 MCHC 31.0 L RDW 15.5 Plt Count 229 MPV 11.7 Neut % (Auto) 55.6 Lymph % (Auto) 30.9 [place] % (Auto) 9.1 Eos % (Auto) 3.1 Baso % (Auto) 0.7 Neut # (Auto) 3.0 Lymph # (Auto) 1.7 [place] # (Auto) 0.5 Eos # (Auto) 0.2 Baso # (Auto) 0.0 Immature Gran % 0.6 Nucleated RBC % 0.0 Immature Gran # 0.03 Nucleated RBCs # 0.00 Immature Plt Fraction 0.0 ESR Westergren Absolute Retic Percent Retic Retic Hgb Equivalent Hemoglobin A1 Hemoglobin A2 Hemoglobin C Hemoglobin D Hemoglobin E Hemoglobin F (ELP) Hemoglobin G Hemoglobin S Hgb ELP Interp INR 2.8 PT Patient/Control Mix 32.1 D Sodium Potassium Chloride Carbon Dioxide Anion Gap BUN Creatinine GFR Calculation BUN/Creatinine Ratio Glucose POC Glucose 305 H Calculated Osmolality Calcium Magnesium Ferritin B-Natriuretic Peptide Triglycerides Cholesterol LDL Cholesterol VLDL Cholesterol HDL Cholesterol Heart Disease Risk Ratio Vitamin B12 Folate MARTA (IgG-AHG) MARTA, Polyspecific 10/27/16 10/27/16 10/27/16 04:40 04:40 04:40 WBC RBC Hgb Hct MCV MCH MCHC RDW Plt Count MPV Neut % (Auto) Lymph % (Auto) [place] % (Auto) Eos % (Auto) Baso % (Auto) Neut # (Auto) Lymph # (Auto) [place] # (Auto) Eos # (Auto) Baso # (Auto) Immature Gran % Nucleated RBC % Immature Gran # Nucleated RBCs # Immature Plt Fraction ESR Westergren Absolute Retic Percent Retic Retic Hgb Equivalent Hemoglobin A1 Hemoglobin A2 Hemoglobin C Hemoglobin D Hemoglobin E Hemoglobin F (ELP) Hemoglobin G Hemoglobin S Hgb ELP Interp INR PT Patient/Control Mix Sodium 139 Potassium 4.0 Chloride 101 Carbon Dioxide 31 Anion Gap 11.0 BUN 31 H Creatinine 1.90 H GFR Calculation 39 BUN/Creatinine Ratio 16.00 Glucose 172 H POC Glucose Calculated Osmolality 287.5 Calcium 8.9 Magnesium 2.0 Ferritin B-Natriuretic Peptide 188 H Triglycerides 156 H Cholesterol 146 LDL Cholesterol 59.0 VLDL Cholesterol 31.2 HDL Cholesterol 67 H Heart Disease Risk Ratio 2.18 Vitamin B12 Folate MARTA (IgG-AHG) MARTA, Polyspecific 10/27/16 07:37 WBC RBC Hgb Hct MCV MCH MCHC RDW Plt Count MPV Neut % (Auto) Lymph % (Auto) [place] % (Auto) Eos % (Auto) Baso % (Auto) Neut # (Auto) Lymph # (Auto) [place] # (Auto) Eos # (Auto) Baso # (Auto) Immature Gran % Nucleated RBC % Immature Gran # Nucleated RBCs # Immature Plt Fraction ESR Westergren Absolute Retic Percent Retic Retic Hgb Equivalent Hemoglobin A1 Hemoglobin A2 Hemoglobin C Hemoglobin D Hemoglobin E Hemoglobin F (ELP) Hemoglobin G Hemoglobin S Hgb ELP Interp INR PT Patient/Control Mix Sodium Potassium Chloride Carbon Dioxide Anion Gap BUN Creatinine GFR Calculation BUN/Creatinine Ratio Glucose POC Glucose 191 H Calculated Osmolality Calcium Magnesium Ferritin B-Natriuretic Peptide Triglycerides Cholesterol LDL Cholesterol VLDL Cholesterol HDL Cholesterol Heart Disease Risk Ratio Vitamin B12 Folate MARTA (IgG-AHG) MARTA, Polyspecific - EKG EKG results: interpreted by me, sinus rhythm
--- NOTE | 2016-10-27 12:31 | Sleep Medicine Consult ---
Assessment and Plan (1) Obstructive sleep apnea Status: Acute Assessment and plan: This patient does have a history of obstructive sleep apnea. Family will bring her CPAP machine to the hospital and we will download compliance data. I will have sleep takes check her mask fit and make sure that all is okay. She will need follow-up in sleep clinic after discharge. Thank you for this consult. This is very likely the reason that she is having significant O2 desaturation during sleep. CPAP should help with this issue. Current Visit: Yes (2) Hypertension Status: Chronic Assessment and plan: The prevalence rate for obstructive sleep apnea patients with hypertension is 35 %. That rate can be as high as 80% in patients who require 4 or more medications for blood pressure control. Current Visit: Yes Qualifiers: Hypertension type: essential hypertension Qualified Code(s): I10 - Essential (primary) hypertension (3) CHF (congestive heart failure) Status: Acute Assessment and plan: Untreated obstructive sleep apnea can be an exacerbating factor for either systolic or diastolic congestive heart failure. Treatment with CPAP therapy can help with management of CHF and decreased readmission rate. In patients with systolic dysfunction, CPAP has been shown to improve ejection fraction in some studies. Current Visit: Yes Qualifiers: Congestive heart failure type: diastolic Congestive heart failure chronicity: acute on chronic Qualified Code(s): I50.33 - Acute on chronic diastolic (congestive) heart failure History of Present Illness Chief complaint: Sleep apnea History of present illness: Ms. Perez is a 51 year old female known to me from previous sleep evaluation. She was diagnosed with obstructive sleep apnea over a year ago. She was prescribed CPAP therapy and met compliance on follow-up. However after about 4 months of usage, she began have issues with intolerance and eventually quit using CPAP without letting us know in the sleep lab. She has been admitted with CHF and we were consulted to reevaluate her. She states that she thought she was having panic attacks on CPAP. She had no significant weight change at the time of these problems but has gained significant weight with this admission. She will have her family members bring in her CPAP device for her. She understands now the importance of maintaining compliance with CPAP. Home Medications Medication Instructions Recorded Confirmed Type Atorvastatin [Lipitor] 20 mg PO DAILY 10/25/16 10/25/16 History Cetirizine HCl [Cetirizine Tab] 10 mg PO DAILY 10/25/16 10/25/16 History Fenofibrate [Tricor] 145 mg PO DAILY 10/25/16 10/25/16 History Fluticasone 50 Mcg Nasal [place] 1 spray BOTH NARES DAILY 10/25/16 10/25/16 History [Flonase Nasal [place]] Furosemide Tab [Lasix Tab] 20 mg PO DAILY PRN 10/25/16 10/25/16 History Gabapentin 600 mg PO BID 10/25/16 10/25/16 History Liraglutide [Victoza 2-Jad] 1.8 mg SUBCUT DAILY 10/25/16 10/25/16 History Metformin HCl 1,000 mg PO BID 10/25/16 10/25/16 History Metoprolol Tartrate Tab [Lopressor 100 mg PO BID 10/25/16 10/25/16 History Tab] Nortriptyline [Pamelor] 75 mg PO BID 10/25/16 10/25/16 History Omeprazole Magnesium [Prilosec Otc] 20 mg PO DAILY 10/25/16 10/25/16 History Warfarin [Coumadin] 10 mg PO DAILY@1800 10/25/16 10/25/16 History Isosorbide Mononitrate [Imdur] 15 mg PO DAILY #30 tablet 10/27/16 Rx hydrALAZINE TAB [Apresoline Tab] 25 mg PO TID #90 tablet 10/27/16 Rx Allergies Allergy/AdvReac Type Severity Reaction Status Date / Time sulfacetamide Allergy Unknown Verified 10/13/15 15:34 [From Sulfacet-R] sulfur dioxide Allergy Unknown Verified 05/19/16 09:10 Review of systems: Otherwise unremarkable from a sleep standpoint Exam (Pulmonay) H&P - Constitutional Vitals: Period Temp Pulse Resp BP Sys/Seay Pulse Ox Last 24 Hr 96.7 F-98.9 F 59-82 18-24 110-160/59-84 89-95 Exam: She is alert and responsive in no acute distress. Pupils equal round reactive to light and accommodation. Extraocular movements intact. Oropharynx with class III Mallampati exam. Neck is supple without adenopathy or thyromegaly. No supraclavicular adenopathy is noted. Chest with symmetrical breath sounds without focal wheeze, rhonchi, or rales. Cardiac exam reveals a regular rhythm without murmur gallop abdomen obese nontender without palpable hepatosplenomegaly or mass. Extremities without significant edema or clubbing. Neurologically, she is grossly intact. She answered all questions appropriately. She moves all extremities with good strength. Medical,Surgical,& Family Hx - Medical History Cardio: History of: CHF, Hypertension Endocrine: History of: Diabetes Mellitus (NIDDM), Dyslipidemia Respiratory: History of: Obstructive Sleep Apnea, Pulmonary Embolism, Respiratory Problems Hematology: History of: Clotting Problems Other: History of: Miscellaneous Medical Problems (Chronic wounds and either COPD or asthma she does not know which) - Surgical History Cardiac Surgeries: Patient Denies: Cardiac Catheterization - Family History Family History: Reports;: Family Cancer, Family Diabetes, Family Heart Disease - Social History Smoking Status: Never smoker Frequency of Alcohol Use: Rarely Type of Drug Use: None Results - Labs CBC & BMP: 10/27/16 04:40 10/27/16 04:40 Lab Results: I have reviewed the past 24 hour labs
[2016-10-27] MEDS: FUROSEMIDE 40 MG TABLET PO SCH (15:05)
[2016-10-27] MEDS ORDERED: WARFARIN 5 MG TABLET ONE (18:11)
[2016-10-27] MEDS: WARFARIN 10 MG TABLET PO SCH (18:13)
[2016-10-28 05:53] LABS: Basophils % 0.8 % (0.0-0.8); Eosinophils # 0.2 10*3/uL (0.0-0.87); Hematocrit 29.7 VOL% (35.7-47.0); Hemoglobin 9.2 GM/DL (12.0-16.0); Immature Granulocytes % 0.4 %; Immature Granulocytes Absolute 0.02 #; Lymphocytes # 1.6 10*3/uL (1.4-4.0); Lymphocytes % 29.4 % (21.3-54.2); Mean Corpuscular Hemoglobin 27 PG (27-34); Mean Corpuscular Volume 87.1 FL (87-102); Mean Platelet Volume 11.6 FL (9.6-12.0); Monocytes # 0.4 10*3/uL (0.11-0.8); Monocytes % 7.4 % (1.7-12.7); Neutrophils # 3.1 10*3/uL (1.4-7.4); Platelet Count 261 T/CUMM (130-400); Red Blood Count 3.41 MC/CUMM (3.8-5.5); Red Cell Distribution Width 15.4 % (9.3-17.3); White Blood Count 5.3 T/CUMM (4-12)
[2016-10-28 06:09] LABS: INR 3.3
[2016-10-28 06:12] LABS: PT Patient Result 38.1 SECS
[2016-10-28 06:38] LABS: Calcium 9.1 MG/DL (8.5-10.1); Osmolality,Calculated 288.4 MOS/KG (273-304); Potassium 3.8 MMOL/L (3.5-5.1)
[2016-10-28] MEDS: NORTRIPTYLINE 25 MG CAPSULE PO SCH (08:09)
[2016-10-28] MEDS: FENOFIBRATE 145 MG TABLET PO SCH (08:10)
[2016-10-28] MEDS: METOPROLOL TARTRATE 100 MG TABLET PO SCH (08:11)
[2016-10-28] MEDS: FUROSEMIDE 40 MG TABLET PO SCH (08:11)
[2016-10-28] MEDS: CETIRIZINE 10 MG TABLET PO SCH (08:11)
[2016-10-28] MEDS: ATORVASTATIN 20 MG TABLET PO SCH (08:12)
[2016-10-28] MEDS: ISOSORBIDE MONONITRATE 30 MG TABLET PO SCH (08:12)
[2016-10-28] MEDS: PANTOPRAZOLE 40 MG TABLET PO SCH (08:13)
[2016-10-28] MEDS: hydrALAZINE 25 MG TABLET PO SCH ×2 (08:13→16:03)
[2016-10-28] MEDS: FLUTICASONE 50 MCG NASAL SPRAY 16 GM BOTTLE BOTH NARES SCH (08:14)
[2016-10-28] MEDS: INSULIN REGULAR 100 UNIT/ML SUBCUT SCH ×2 (08:15→13:36)
[2016-10-28] MEDS: GABAPENTIN 600 MG TABLET PO SCH (08:18)
--- NOTE | 2016-10-28 08:51 | Cardiology Progress Note ---
Assessment and Plan - Time spent with patient Time spent with patient: Less than 30 minutes (1) CHF (congestive heart failure) Status: Acute Assessment and plan: See plan of care listed below. Current Visit: Yes Qualifiers: Congestive heart failure type: diastolic Congestive heart failure chronicity: acute on chronic Qualified Code(s): I50.33 - Acute on chronic diastolic (congestive) heart failure (2) Hypertension Status: Chronic Assessment and plan: See plan of care listed below. Current Visit: Yes Qualifiers: Hypertension type: essential hypertension Qualified Code(s): I10 - Essential (primary) hypertension (3) Diabetes mellitus Status: Chronic Assessment and plan: See plan of care listed below. Current Visit: Yes Qualifiers: Diabetes mellitus type: type 2 Diabetes mellitus complication status: with kidney complications Diabetes mellitus complication detail: with chronic kidney disease Diabetes mellitus prison insulin use: without prison use Chronic kidney disease stage: stage 2 (mild) Qualified Code(s): E11.22 - Type 2 diabetes mellitus with diabetic chronic kidney disease; N18.2 - Chronic kidney disease, stage 2 (mild) (4) History of pulmonary embolus (PE) Status: Chronic Assessment and plan: See plan of care listed below. Current Visit: Yes (5) History of neuropathy Status: Chronic Assessment and plan: See plan of care listed below. Current Visit: Yes (6) Chronic anticoagulation Status: Chronic Assessment and plan: See plan of care listed below. Current Visit: Yes (7) Chronic wound of extremity Status: Chronic Assessment and plan: See plan of care listed below. Current Visit: Yes (8) Anemia Status: Chronic Assessment and plan: See plan of care listed below. Current Visit: Yes Qualifiers: Chronic kidney disease stage: stage 2 (mild) (9) Dyslipidemia Status: Chronic Assessment and plan: See plan of care listed below. Current Visit: Yes (10) Chronic renal insufficiency Status: Chronic Assessment and plan: See plan of care listed below. Current Visit: Yes Qualifiers: Chronic kidney disease stage: stage 2 (mild) Qualified Code(s): N18.2 - Chronic kidney disease, stage 2 (mild) Cardiology - PN: Subj Interval history: [employer]: new to [facility], referred to Dr. Manzo by Dr. Villagomez PCP: Dr. Villagomez SUMMARY: Ms. Perez is a 51 year old female with history of chronic anticoagulation due to history of pulmonary embolus, diabetic neuropathy. Risk factors are significant for: Hypertension, diabetes, dyslipidemia, sedentary lifestyle, obesity. She also has a history of chronic renal insufficiency and has been followed by Dr. Srinivasan Marcus in the past. S/p pulmonary thromboendarterectomy in 1996. She was admitted to the hospital with dyspnea, decreased SpO2. Echocardiogram revealed EF 55%, mild LVH, mild LAE, trace MR, trace TR, RV systolic pressure 58-68 mmHg. We have been treating her for diastolic CHF. OCTOBER 28, 2016 UPDATE: She is much improved today. Lungs remain clear and lower extremity edema is much improved. It may be best to keep her a little on the dry side to keep her out of heart failure. She is still wearing her oxygen and saturations still drop occasionally when off O2. She may require PRN home O2 due to her intermittent hypoxemia. Case managment is assisting us in trying to get this set up so she can be discharged soon. She informed me today that she required home O2 back in the when she had her pulmonary emboli. Dr. Cowart has been following for sleep medicine. CPAP settings have been reset and she will be scheduled for sleep clinic follow up in 1 month after discharge. Okay with cardiology for you to discharge her when you And she are ready. ASSESSMENT/PLAN: 1. ACUTE DIASTOLIC CHF - Continue diuresis with PO Lasix. Echo revealed preserved EF. Continue beta-kayla, furosemide, statin. She is much better compensated now. 2. HYPERTENSION - Has been elevated since admission, now better controlled. Will continue to monitor and adjust accordingly. Continue Metoprolol. She was started on Hydralazine and Imdur in the place of JAMES/ARB as we are trying to avoid worsening her renal function. 3. DIABETES - She is on sliding scale insulin and accuchecks. Hemoglobin A1C 10.1. 4. HISTORY OF PULMONARY EMBOLUS - Continue anticoagulation with Coumadin. Goal INR 2-3. 5. HISTORY OF NEUROPATHY - Chronic. 6. CHRONIC ANTICOAGULATION - On Coumadin. INR is 3.3 today. We will continue to monitor. 7. CHRONIC LOWER EXTREMITY WOUND - Is routinely followed at wound care clinic. 8. ANEMIA - Chronic. Denies any recent melena, hematochezia, hematuria, or epistaxis. Will obtain occult stool and check anemia profile. 9. DYSLIPIDEMIA - Continue lipid lowering agent. Lipid panel revealed triglycerides 156, cholesterol 146, LDL 59, HDL 67. 10. CHRONIC RENAL INSUFFICIENCY - Creatinine 1.6 today. Will continue to monitor BMP and avoid nephrotoxic agents. Exam (Progress Note) - Constitutional Vitals: Period Temp Pulse Resp BP Sys/Seay Pulse Ox Last 24 Hr 97.1 F-97.9 F 59-73 18-20 110-180/59-85 74-96 Exam: General: Present: Appears Well, No Apparent Distress. Pleasant and cooperative. HEENT: Present: PERRL, Normocephaly, atraumatic. Mucus Membranes Moist. No jaundice noted. Conjunctiva moist and clear. Neck: Present: Supple Neck, Midline Trachea, No Masses, No Bruit, No tenderness Cardiac: Present: Regular Rate and Rhythm, No Murmur Lungs: Present: clear to auscultation bilaterally, no wheezes, rhonchi, rales. Neuro: Present: Awake, alert, and oriented x3. Moves all extremities well without hemiparesis or paralysis. Grossly Intact. Absent: Resting Tremor, Essential Tremor Abdomen: Present: Soft, Active Bowel Sounds, No Masses, Non-Tender, nondistended. No abdominal bruit or thrill noted. Skin: Present: Clear. Absent: Rash, No skin breakdown. Back: Normal inspection, no vertebral tenderness. Musculoskeletal: Present: No Fluid Collection, No Pain, Normal Range of Motion Extremities: Present: Normal Gait, No Clubbing, No Cyanosis, Upper Extr. Pulses 2+, Lower Extr. Pulses 2+, No edema. Capillary refill less than 3 seconds. Result/EKG - Labs CBC & BMP: 10/28/16 04:58 10/28/16 04:58 Lab Results: I have reviewed the past 24 hour labs Labs: Laboratory Results - last 24 hr 10/26/16 10/26/16 10/27/16 05:09 09:38 11:31 WBC RBC Hgb Hct MCV MCH MCHC RDW Plt Count MPV Neut % (Auto) Lymph % (Auto) [place] % (Auto) Eos % (Auto) Baso % (Auto) Neut # (Auto) Lymph # (Auto) [place] # (Auto) Eos # (Auto) Baso # (Auto) Immature Gran % Nucleated RBC % Immature Gran # Nucleated RBCs # Anemia Panel Interp See comment Immature Plt Fraction Hemoglobin A1 97.1 Hemoglobin A2 2.9 Hemoglobin C Not Reportable Hemoglobin D Not Reportable Hemoglobin E Not Reportable Hemoglobin F (ELP) Not Reportable Hemoglobin G Not Reportable Hemoglobin S Not Reportable Hgb ELP Interp INR PT Patient/Control Mix Sodium Potassium Chloride Carbon Dioxide Anion Gap BUN Creatinine GFR Calculation BUN/Creatinine Ratio Glucose POC Glucose 302 H Calculated Osmolality Calcium Magnesium B-Natriuretic Peptide 10/27/16 10/27/16 10/28/16 16:42 20:11 04:58 WBC RBC Hgb Hct MCV MCH MCHC RDW Plt Count MPV Neut % (Auto) Lymph % (Auto) [place] % (Auto) Eos % (Auto) Baso % (Auto) Neut # (Auto) Lymph # (Auto) [place] # (Auto) Eos # (Auto) Baso # (Auto) Immature Gran % Nucleated RBC % Immature Gran # Nucleated RBCs # Anemia Panel Interp Immature Plt Fraction Hemoglobin A1 Hemoglobin A2 Hemoglobin C Hemoglobin D Hemoglobin E Hemoglobin F (ELP) Hemoglobin G Hemoglobin S Hgb ELP Interp INR 3.3 PT Patient/Control Mix 38.1 Sodium Potassium Chloride Carbon Dioxide Anion Gap BUN Creatinine GFR Calculation BUN/Creatinine Ratio Glucose POC Glucose 210 H 394 H Calculated Osmolality Calcium Magnesium B-Natriuretic Peptide 10/28/16 10/28/16 10/28/16 04:58 04:58 04:58 WBC 5.3 RBC 3.41 L Hgb 9.2 L Hct 29.7 L MCV 87.1 MCH 27 MCHC 31.0 L RDW 15.4 Plt Count 261 MPV 11.6 Neut % (Auto) 59.0 Lymph % (Auto) 29.4 [place] % (Auto) 7.4 Eos % (Auto) 3.0 Baso % (Auto) 0.8 Neut # (Auto) 3.1 Lymph # (Auto) 1.6 [place] # (Auto) 0.4 Eos # (Auto) 0.2 Baso # (Auto) 0.0 Immature Gran % 0.4 Nucleated RBC % 0.0 Immature Gran # 0.02 Nucleated RBCs # 0.00 Anemia Panel Interp Immature Plt Fraction 0.0 Hemoglobin A1 Hemoglobin A2 Hemoglobin C Hemoglobin D Hemoglobin E Hemoglobin F (ELP) Hemoglobin G Hemoglobin S Hgb ELP Interp INR PT Patient/Control Mix Sodium 140 Potassium 3.8 Chloride 101 Carbon Dioxide 31 Anion Gap 11.8 BUN 31 H Creatinine 1.60 H GFR Calculation 48 BUN/Creatinine Ratio 19.00 Glucose 144 H POC Glucose Calculated Osmolality 288.4 Calcium 9.1 Magnesium 2.0 B-Natriuretic Peptide 175 H 10/28/16 08:00 WBC RBC Hgb Hct MCV MCH MCHC RDW Plt Count MPV Neut % (Auto) Lymph % (Auto) [place] % (Auto) Eos % (Auto) Baso % (Auto) Neut # (Auto) Lymph # (Auto) [place] # (Auto) Eos # (Auto) Baso # (Auto) Immature Gran % Nucleated RBC % Immature Gran # Nucleated RBCs # Anemia Panel Interp Immature Plt Fraction Hemoglobin A1 Hemoglobin A2 Hemoglobin C Hemoglobin D Hemoglobin E Hemoglobin F (ELP) Hemoglobin G Hemoglobin S Hgb ELP Interp INR PT Patient/Control Mix Sodium Potassium Chloride Carbon Dioxide Anion Gap BUN Creatinine GFR Calculation BUN/Creatinine Ratio Glucose POC Glucose 162 H Calculated Osmolality Calcium Magnesium B-Natriuretic Peptide - EKG EKG results: interpreted by me, sinus rhythm
[2016-10-28 11:45] VITALS: BP 121/62
--- NOTE | 2016-10-28 12:07 | Sleep Medicine Progress Note ---
Assessment and Plan (1) Obstructive sleep apnea Status: Acute Assessment and plan: Her CPAP will be reset at 11 cm and she will be scheduled for sleep clinic follow-up in 1 month after discharge. I did discuss her case with Dr. Limon and they are working on ordering in-line O2 for her CPAP. Current Visit: Yes (2) Hypertension Status: Chronic Current Visit: Yes Qualifiers: Hypertension type: essential hypertension Qualified Code(s): I10 - Essential (primary) hypertension (3) CHF (congestive heart failure) Status: Acute Current Visit: Yes Qualifiers: Congestive heart failure type: diastolic Congestive heart failure chronicity: acute on chronic Qualified Code(s): I50.33 - Acute on chronic diastolic (congestive) heart failure Sleep Medicine Subjective Interval history: Patient slept with her own CPAP machine last night but developed shortness of breath and O2 desaturation. She was on an auto titration mode and her mean pressure was only 5.2. She had an average AHI of 3. She had not been on O2 previously but her CPAP is been set higher at 11 cm. Given the issues with O2 desaturation during sleep, we will reset her machine at 11 cm and schedule her for follow-up in 1 month. If she continues to have issues with breathing during her sleep, she certainly may need re-titration. Exam (Progress Note) - Constitutional Vitals: Period Temp Pulse Resp BP Sys/Seay Pulse Ox Last 24 Hr 96.3 F-97.9 F 59-73 18-20 121-180/62-85 74-96 Exam: She is alert and responsive in no acute distress. She answers questions appropriately. She moves all extremities with good strength. Results - Labs CBC & BMP: 10/28/16 04:58 10/28/16 04:58 Lab Results: I have reviewed the past 24 hour labs
[2016-10-28 14:26] LABS: Free T4 (Free Thyroxine) 1.08 NG/DL (0.76-1.46); Thyroid Stimulating Hormone 1.16 uIU/ml (0.358-3.74)
[2016-10-28] MEDS ORDERED: cephALEXin 500 MG CAPSULE PO SCH (14:30)
--- NOTE | 2016-10-28 16:02 | Discharge Summary ---
Hospital Course - Hospital Course Hospital Course: 51 year old female past medical history significant for congestive heart failure , pulmonary embolus, hypertension, gerd, diabetes, neuropathy and chronic wounds was admitted with dyspnea and lower extremity edema due to acute on chronic diastolic congestive heart failure. She was admitted and treated with IV diuretics and her dyspnea orthopnea and lower extremity edema started improving. Cardiology was following in consultation. She also had acute kidney injury on chronic kidney disease stage III. Other home medications were continued and adjusted as needed. She also had urine tract infection present on admission, urine culture was positive for Staphylococcus, which was treated with Keflex. She has chronic sleep apnea and uses home CPAP. Sleep medicine was following and adjusted her CPAP machine pressures. She has chronic lower extremity wounds for which he routinely follows with wound care clinic. She has diabetes and her Metformin will be held. Cardiology is following in consultation and adjusted has adjusted her medications. She has significantly improved improved and is being discharged home in an improved and stable condition. Time spent doing the discharge summary order prescription about 40 minutes. - Time spent with patient Time with patient DS: Greater than 30 minutes Diagnosis - Discharge Diagnosis (1) CHF (congestive heart failure) Status: Acute (2) Dyspnea Status: Resolved Specialty Discharge - Follow Up or Referrals Follow up with: Sam Limon MD [Physician] - 2 Weeks (Follow up with Dr. Limon in 2 weeks. ) Discharge Plan - Discharge Data Disposition: Disch To Home/Self Care Condition at Discharge: Stable Discharge Diet: low salt diet Activity: resume usual activities as tolerated Hygiene: no restrictions Weight Bearing at Discharge: full weight bearing Driving: no restrictions - Discharge Medications New hydrALAZINE TAB [Apresoline Tab] 25 mg PO TID #90 tablet Isosorbide Mononitrate [Imdur] 15 mg PO DAILY #30 tablet cephALEXin [Keflex] 500 mg PO Q12HR #10 capsule Furosemide Tab [Lasix Tab] 40 mg PO BID W/MEALS #60 tablet Continue Cetirizine HCl [Cetirizine Tab] 10 mg PO DAILY Nortriptyline [Pamelor] 75 mg PO BID Atorvastatin [Lipitor] 20 mg PO DAILY Metoprolol Tartrate Tab [Lopressor Tab] 100 mg PO BID Fluticasone 50 Mcg Nasal [place] [Flonase Nasal [place]] 1 spray BOTH NARES DAILY Omeprazole Magnesium [Prilosec Otc] 20 mg PO DAILY Gabapentin 600 mg PO BID Liraglutide [Victoza 2-Jad] 1.8 mg SUBCUT DAILY Warfarin [Coumadin] 10 mg PO DAILY@1800 Furosemide Tab [Lasix Tab] 20 mg PO DAILY PRN PRN Reason: FLUID Fenofibrate [Tricor] 145 mg PO DAILY Discontinued amLODIPine [Norvasc] 10 mg PO DAILY Metformin HCl 1,000 mg PO BID - Follow Up or Referral Follow Up: Sam Limon MD [Physician] - 2 Weeks (Follow up with Dr. Limon in 2 weeks. ) - Forms/Instructions Exam - Constitutional Vitals: Period Temp Pulse Resp BP Sys/Seay Pulse Ox Last 24 Hr 96.3 F-97.9 F 59-73 18-20 121-180/62-85 74-96 Exam: General: No Acute Distress HEENT: Normocephalic, atraumatic, Extra ocular movements intact Neck: Supple, No JVD Chest: Clear to auscultation B/L CV: S1 + S2 audible without murmur, gallop or rub Abd: soft, NT, Non-distended, BS + Ext: Mild edema Skin: No purpura, bruising or rash Rheumatologic: No Joint deformities Neurologic: Strength 5/5 all extremities, no gross sensory deficits Discharge Results Procedures and tests throughout hospitalization: Pending Orders 10/26/16 09:37 Occult Blood, Stool Routine 10/29/16 04:00 BMP w/ Mg [Basic Metabolic Panel w/Mg] IN AM CBC [Comp Blood Count Auto Diff] IN AM Labs on day of discharge: Labs from last 24 hours 10/28/16 10/28/16 10/28/16 11:29 08:00 04:58 WBC RBC Hgb Hct MCV MCH MCHC RDW Plt Count MPV Neut % (Auto) Lymph % (Auto) [place] % (Auto) Eos % (Auto) Baso % (Auto) Neut # (Auto) Lymph # (Auto) [place] # (Auto) Eos # (Auto) Baso # (Auto) Immature Gran % Nucleated RBC % Immature Gran # Nucleated RBCs # Immature Plt Fraction INR PT Patient/Control Mix Sodium Potassium Chloride Carbon Dioxide Anion Gap BUN Creatinine GFR Calculation BUN/Creatinine Ratio Glucose POC Glucose 258 H 162 H Calculated Osmolality Calcium Magnesium B-Natriuretic Peptide 175 H Free T4 TSH 3rd Generation 10/28/16 10/28/16 10/28/16 04:58 04:58 04:58 WBC 5.3 RBC 3.41 L Hgb 9.2 L Hct 29.7 L MCV 87.1 MCH 27 MCHC 31.0 L RDW 15.4 Plt Count 261 MPV 11.6 Neut % (Auto) 59.0 Lymph % (Auto) 29.4 [place] % (Auto) 7.4 Eos % (Auto) 3.0 Baso % (Auto) 0.8 Neut # (Auto) 3.1 Lymph # (Auto) 1.6 [place] # (Auto) 0.4 Eos # (Auto) 0.2 Baso # (Auto) 0.0 Immature Gran % 0.4 Nucleated RBC % 0.0 Immature Gran # 0.02 Nucleated RBCs # 0.00 Immature Plt Fraction 0.0 INR 3.3 PT Patient/Control Mix 38.1 Sodium 140 Potassium 3.8 Chloride 101 Carbon Dioxide 31 Anion Gap 11.8 BUN 31 H Creatinine 1.60 H GFR Calculation 48 BUN/Creatinine Ratio 19.00 Glucose 144 H POC Glucose Calculated Osmolality 288.4 Calcium 9.1 Magnesium 2.0 B-Natriuretic Peptide Free T4 TSH 3rd Generation 10/28/16 10/27/16 10/27/16 04:57 20:11 16:42 WBC RBC Hgb Hct MCV MCH MCHC RDW Plt Count MPV Neut % (Auto) Lymph % (Auto) [place] % (Auto) Eos % (Auto) Baso % (Auto) Neut # (Auto) Lymph # (Auto) [place] # (Auto) Eos # (Auto) Baso # (Auto) Immature Gran % Nucleated RBC % Immature Gran # Nucleated RBCs # Immature Plt Fraction INR PT Patient/Control Mix Sodium Potassium Chloride Carbon Dioxide Anion Gap BUN Creatinine GFR Calculation BUN/Creatinine Ratio Glucose POC Glucose 394 H 210 H Calculated Osmolality Calcium Magnesium B-Natriuretic Peptide Free T4 1.08 TSH 3rd Generation 1.160 DS: Provider Date of admission: 10/25/16 15:39 Primary care physician: . No PCP Attending physician on admission: Leandro Fowler MD Consults: 10/25/16 16:02 Consult to Physician [CONS] Routine Comment: Consulting Provider: Cardiology - [facility] 10/25/16 16:04 Consult to Wound Care - [place] [CONS] Routine Reason for Wound Care: Wound Care Management 10/26/16 09:48 Consult to Diabetes Center, Educator [CONS] Routine Reason for Stereoptician: Diabetes Education Consult Comment: non-healing wound and high a1c 10/27/16 10:45 Consult to Sleep Center [CONS] Routine Reason for Sleep Center: Sleep Center Physician Consult Comment: possible sleep apnea, claustrophobic 10/28/16 11:28 Consult to Case Mgmt/Social Srvs [CONS] Routine Reason for Case Mgmt/Social Srvs: Other Consult Comment: home o2 Discharging clinician: Branden Dale MD
== END 2016-10-28 16:26 | disposition home or self-care (01) | DRG 291 ==
LOC: N.ED 13:43 → N.EDINP 15:39 → SUATTDRO 15:39 → N.EDINP 18:04 → N.TELEN 18:08
PROVIDERS: ADMIT Internal Medicine; ATTEND Hospitalist

== ENCOUNTER 2017-08-28 10:58 | Observation (INO) ==
[2017-08-28 11:30] LABS: Basophils # 0.1 10*3/uL (0.0-0.2); Eosinophils # 0.2 10*3/uL (0.0-0.87); Eosinophils % 3.1 % (0.00-10.9); Hematocrit 32.8 VOL% (35.7-47.0); Hemoglobin 10.2 GM/DL (12.0-16.0); Immature Granulocytes % 0.6 %; Immature Granulocytes Absolute 0.05 #; Lymphocytes # 1.6 10*3/uL (1.4-4.0); Lymphocytes % 20.4 % (21.3-54.2); Mean Corpuscular HGB Conc 31.1 GM/DL (32-36); Mean Corpuscular Hemoglobin 27 PG (27-34); Mean Corpuscular Volume 87.2 FL (87-102); Mean Platelet Volume 11.3 FL (9.6-12.0); Monocytes # 0.5 10*3/uL (0.11-0.8); Monocytes % 6.1 % (1.7-12.7); Neutrophils # 5.3 10*3/uL (1.4-7.4); Neutrophils % 68.8 % (38.7-73.9); Platelet Count 321 T/CUMM (130-400); Red Blood Count 3.76 MC/CUMM (3.8-5.5); Red Cell Distribution Width 14.9 % (9.3-17.3); White Blood Count 7.8 T/CUMM (4-12)
[2017-08-28 11:53] LABS: Alanine Aminotransferase 45 U/L (13-56); Albumin 3.6 G/DL (3.4-5.0); Alkaline Phosphatase 43 U/L (45-117); Aspartate Amino Transferase 30 U/L (0-37); Blood Urea Nitrogen 27 MG/DL (7-18); Calcium 9.4 MG/DL (8.5-10.1); Glucose 134 MG/DL (74-106); Osmolality,Calculated 285.4 MOS/KG (273-304); Potassium 4.3 MMOL/L (3.5-5.1); Sodium 140 MMOL/L (136-145); Total Protein 7.3 G/DL (6.4-8.3); Troponin I Only 0.025 NG/ML (0.00-0.045)
[2017-08-28] MEDS ORDERED: FUROSEMIDE 100 MG/10 ML VIAL IV STA (11:53)
[2017-08-28] MEDS ORDERED: ONDANSETRON 4 MG/2 ML VIAL IV STA (11:53)
[2017-08-28] MEDS ORDERED: ALBUTEROL/IPRATROPIUM 3 ML NEB RESP TX STA (11:53)
[2017-08-28 12:31] LABS: INR 1.8; PT Patient Result 18.8 SECS
[2017-08-28 13:03] LABS: Apearance,Urine Slightly Hazy (Clear); Bilirubin,Urine Negative (Negative); Blood, Urine Negative (Negative); Glucose,Urine (UA) Negative (Negative); Ketones,Urine Negative (Negative); Nitrite,Urine Negative (Negative); Protein,Urine 100 MG/DL; RBC,Urine <1 /HPF (0-4); Squamous Epithelial Cell,Urine Occasional /HPF (0-10); Urine Color Yellow (Yellow); Urine Specific Gravity 1.006 (1.001-1.035); Urine Urobilinogen < 2.0 EU/DL (0.2-1.0); WBC,Urine 1 /HPF (0-6)
[2017-08-28] MEDS ORDERED: cefTRIAXone 1,000 MG in SODIUM CHLORIDE 0.9% 100 ML IV STA (13:43)
[2017-08-28] MEDS ORDERED: cefTRIAXone 1,000 MG in SYRINGE 1 EACH IV STA (13:48)
[2017-08-28] MEDS ORDERED: ACETAMINOPHEN 325 MG TABLET PO PRN (15:13)
[2017-08-28] MEDS ORDERED: GLUCAGON 1 MG VIAL IM PRN (15:19)
[2017-08-28] MEDS ORDERED: DEXTROSE 50% 25 GM/50 ML VIAL IV PRN (15:19)
[2017-08-28] MEDS ORDERED: CETIRIZINE 10 MG TABLET PO PRN (15:20)
[2017-08-28] MEDS ORDERED: FUROSEMIDE 20 MG TABLET PO PRN (15:20)
[2017-08-28] MEDS ORDERED: FLUTICASONE 50 MCG NASAL SPRAY 16 GM BOTTLE BOTH NARES PRN (15:20)
[2017-08-28] MEDS ORDERED: ERGOCALCIFEROL 50,000 UNIT CAPSULE PO SCH (15:30)
[2017-08-28] MEDS ORDERED: SODIUM CHLORIDE 0.9% 1,000 ML IV SCH (17:00)
[2017-08-28] MEDS: INSULIN LISPRO 100 UNIT/ML SUBCUT SCH ×2 (17:18→20:40)
[2017-08-28] MEDS: WARFARIN 10 MG TABLET PO SCH (19:12)
[2017-08-28] MEDS: AZITHROMYCIN INJ 500 MG in SODIUM CHLORIDE 0.9% 250 ML IV SCH (19:23)
[2017-08-28] MEDS: ALBUTEROL/IPRATROPIUM 3 ML NEB RESP TX SCH (19:52)
[2017-08-28] MEDS: GABAPENTIN 300 MG CAPSULE PO SCH (20:39)
[2017-08-28] MEDS: hydrALAZINE 25 MG TABLET PO SCH (20:40)
[2017-08-28] MEDS: LOSARTAN 25 MG TABLET PO SCH (20:40)
[2017-08-28] MEDS: TOPIRAMATE 100 MG TABLET PO SCH (20:40)
[2017-08-29] MEDS: ALBUTEROL/IPRATROPIUM 3 ML NEB RESP TX SCH ×4 (00:17→19:47)
[2017-08-29 05:25] LABS: Basophils # 0.1 10*3/uL (0.0-0.2); Basophils % 0.7 % (0.0-0.8); Eosinophils # 0.2 10*3/uL (0.0-0.87); Eosinophils % 3.2 % (0.00-10.9); Hematocrit 26.9 VOL% (35.7-47.0); Hemoglobin 8.5 GM/DL (12.0-16.0); Immature Granulocytes % 0.4 %; Immature Granulocytes Absolute 0.03 #; Lymphocytes # 1.8 10*3/uL (1.4-4.0); Lymphocytes % 25.2 % (21.3-54.2); Mean Corpuscular HGB Conc 31.6 GM/DL (32-36); Mean Corpuscular Hemoglobin 27 PG (27-34); Mean Corpuscular Volume 86.5 FL (87-102); Mean Platelet Volume 11.2 FL (9.6-12.0); Monocytes # 0.6 10*3/uL (0.11-0.8); Monocytes % 8.6 % (1.7-12.7); Neutrophils # 4.3 10*3/uL (1.4-7.4); Neutrophils % 61.9 % (38.7-73.9); Platelet Count 280 T/CUMM (130-400); Red Blood Count 3.11 MC/CUMM (3.8-5.5); Red Cell Distribution Width 15.1 % (9.3-17.3); White Blood Count 6.9 T/CUMM (4-12)
[2017-08-29 05:43] LABS: Calcium 8.7 MG/DL (8.5-10.1); Potassium 3.8 MMOL/L (3.5-5.1)
[2017-08-29 06:06] LABS: INR 1.9; PT Patient Result 19.8 SECS
[2017-08-29] MEDS: INSULIN LISPRO 100 UNIT/ML SUBCUT SCH ×4 (07:46→21:29)
[2017-08-29] MEDS: hydrALAZINE 25 MG TABLET PO SCH ×3 (10:06→21:29)
[2017-08-29] MEDS: LOSARTAN 25 MG TABLET PO SCH ×2 (10:06→21:29)
[2017-08-29] MEDS: ISOSORBIDE MONONITRATE 30 MG TABLET PO SCH (10:07)
[2017-08-29] MEDS: ATORVASTATIN 20 MG TABLET PO SCH (10:07)
[2017-08-29] MEDS: GABAPENTIN 300 MG CAPSULE PO SCH ×2 (10:07→21:29)
[2017-08-29] MEDS: PANTOPRAZOLE 40 MG TABLET PO SCH (10:08)
[2017-08-29] MEDS: cefTRIAXone 1,000 MG in SYRINGE 1 EACH IV SCH (10:08)
[2017-08-29] MEDS: FENOFIBRATE 145 MG TABLET PO SCH (10:08)
[2017-08-29] MEDS: SODIUM CHLORIDE 0.9% 1,000 ML IV SCH (15:17)
[2017-08-29] MEDS: WARFARIN 10 MG TABLET PO SCH (18:23)
[2017-08-29] MEDS: AZITHROMYCIN INJ 500 MG in SODIUM CHLORIDE 0.9% 250 ML IV SCH (18:24)
[2017-08-29] MEDS: TOPIRAMATE 100 MG TABLET PO SCH (21:29)
[2017-08-30] MEDS: ALBUTEROL/IPRATROPIUM 3 ML NEB RESP TX SCH ×6 (00:49→23:21)
[2017-08-30 06:00] LABS: Basophils # 0.1 10*3/uL (0.0-0.2); Basophils % 1.2 % (0.0-0.8); Eosinophils # 0.3 10*3/uL (0.0-0.87); Eosinophils % 4.2 % (0.00-10.9); Hematocrit 27.3 VOL% (35.7-47.0); Hemoglobin 8.3 GM/DL (12.0-16.0); Immature Granulocytes % 0.3 %; Immature Granulocytes Absolute 0.02 #; Lymphocytes # 1.9 10*3/uL (1.4-4.0); Lymphocytes % 31.4 % (21.3-54.2); Mean Corpuscular HGB Conc 30.4 GM/DL (32-36); Mean Corpuscular Hemoglobin 27 PG (27-34); Mean Corpuscular Volume 88.3 FL (87-102); Mean Platelet Volume 11.1 FL (9.6-12.0); Monocytes # 0.5 10*3/uL (0.11-0.8); Monocytes % 7.6 % (1.7-12.7); Neutrophils # 3.3 10*3/uL (1.4-7.4); Neutrophils % 55.3 % (38.7-73.9); Platelet Count 269 T/CUMM (130-400); Red Blood Count 3.09 MC/CUMM (3.8-5.5); Red Cell Distribution Width 15.5 % (9.3-17.3)
[2017-08-30] MEDS: SODIUM CHLORIDE 0.9% 1,000 ML IV SCH (06:16)
[2017-08-30 06:17] LABS: Calcium 8.4 MG/DL (8.5-10.1); Potassium 3.8 MMOL/L (3.5-5.1)
[2017-08-30] MEDS: INSULIN LISPRO 100 UNIT/ML SUBCUT SCH ×3 (08:52→17:31)
[2017-08-30] MEDS: LOSARTAN 25 MG TABLET PO SCH ×2 (08:54→20:22)
[2017-08-30] MEDS: hydrALAZINE 25 MG TABLET PO SCH ×3 (08:54→20:21)
[2017-08-30] MEDS: ISOSORBIDE MONONITRATE 30 MG TABLET PO SCH (08:54)
[2017-08-30] MEDS: ATORVASTATIN 20 MG TABLET PO SCH (08:55)
[2017-08-30] MEDS: PANTOPRAZOLE 40 MG TABLET PO SCH (08:56)
[2017-08-30] MEDS: FENOFIBRATE 145 MG TABLET PO SCH (08:56)
[2017-08-30] MEDS: cefTRIAXone 1,000 MG in SYRINGE 1 EACH IV SCH (08:56)
[2017-08-30] MEDS: predniSONE 20 MG TABLET PO SCH (10:24)
[2017-08-30] MEDS: GABAPENTIN 300 MG CAPSULE PO SCH ×2 (10:24→20:22)
[2017-08-30] MEDS ORDERED: FUROSEMIDE 40 MG/4 ML VIAL IV ONE (11:14)
[2017-08-30] MEDS: WARFARIN 10 MG TABLET PO SCH (18:10)
[2017-08-30] MEDS: AZITHROMYCIN INJ 500 MG in SODIUM CHLORIDE 0.9% 250 ML IV SCH (18:14)
[2017-08-30] MEDS: TOPIRAMATE 100 MG TABLET PO SCH (20:22)
[2017-08-31] MEDS: ALBUTEROL/IPRATROPIUM 3 ML NEB RESP TX SCH ×4 (02:50→14:08)
[2017-08-31] MEDS: INSULIN LISPRO 100 UNIT/ML SUBCUT SCH ×3 (03:37→11:56)
[2017-08-31 05:46] LABS: Calcium 9.2 MG/DL (8.5-10.1); Osmolality,Calculated 290.3 MOS/KG (273-304); Potassium 4.1 MMOL/L (3.5-5.1)
[2017-08-31] MEDS: ISOSORBIDE MONONITRATE 30 MG TABLET PO SCH (09:30)
[2017-08-31] MEDS: LOSARTAN 25 MG TABLET PO SCH (09:30)
[2017-08-31] MEDS: hydrALAZINE 25 MG TABLET PO SCH ×2 (09:30→14:51)
[2017-08-31] MEDS: ATORVASTATIN 20 MG TABLET PO SCH (09:31)
[2017-08-31] MEDS: GABAPENTIN 300 MG CAPSULE PO SCH (09:31)
[2017-08-31] MEDS: FENOFIBRATE 145 MG TABLET PO SCH (09:32)
[2017-08-31] MEDS: PANTOPRAZOLE 40 MG TABLET PO SCH (09:32)
[2017-08-31] MEDS: predniSONE 20 MG TABLET PO SCH (09:32)
[2017-08-31] MEDS: cefTRIAXone 1,000 MG in SYRINGE 1 EACH IV SCH (09:33)
[2017-08-31 12:39] VITALS: BP 161/89
== END 2017-08-31 15:25 | disposition home or self-care (01) ==
LOC: N.ED 10:58 → N.EDINP 13:45 → INTOOBSV 13:45 → SUATTDRO 13:45 → N.3E 14:41
PROVIDERS: ADMIT Internal Medicine Nephrology; ATTEND Internal Medicine

== ENCOUNTER 2018-07-23 20:39 | Inpatient (IN) ==
[2018-07-23 21:37] LABS: Basophils # 0.1 10*3/uL (0.0-0.2); Basophils % 0.7 % (0.0-0.8); Eosinophils # 0.1 10*3/uL (0.0-0.87); Eosinophils % 1.2 % (0.00-10.9); Hematocrit 32.2 VOL% (35.7-47.0); Immature Granulocytes % 0.1 %; Immature Granulocytes Absolute 0.01 #; Mean Corpuscular HGB Conc 31.1 GM/DL (32-36); Mean Platelet Volume 11.8 FL (9.6-12.0); Monocytes % 6.8 % (1.7-12.7); Neutrophils % 80.2 % (38.7-73.9); Platelet Count 246 T/CUMM (130-400); Red Blood Count 3.79 MC/CUMM (3.8-5.5); Red Cell Distribution Width 14.3 % (9.3-17.3); White Blood Count 9.2 T/CUMM (4-12)
[2018-07-23 21:53] LABS: INR 2.1
[2018-07-23 21:54] LABS: PT Patient Result 22.2 SECS; Partial Thromboplastin Time 42.8 SECS (0-40)
[2018-07-23 22:04] LABS: Alanine Aminotransferase 18 U/L (13-56); Albumin 3.8 G/DL (3.4-5.0); Alkaline Phosphatase 59 U/L (45-117); Aspartate Amino Transferase 12 U/L (0-37); Bilirubin,Total < 0.39 MG/DL (0.2-1.0); Blood Urea Nitrogen 33 MG/DL (7-18); Calcium 8.7 MG/DL (8.5-10.1); Glucose 146 MG/DL (74-106); Osmolality,Calculated 286.5 MOS/KG (273-304); Total Protein 6.9 G/DL (6.4-8.3)
[2018-07-23] MEDS ORDERED: VANCOMYCIN INJ 1,000 MG in SODIUM CHLORIDE 0.9% 250 ML IV STA ×2 (23:47→23:50)
[2018-07-23] MEDS ORDERED: PIPERACILLIN/TAZOBACTAM 3,375 MG in SODIUM CHLORIDE 0.9% 100 ML IV STA (23:47)
[2018-07-24 00:59] LABS: INR 2.4
[2018-07-24 01:02] LABS: PT Patient Result 26.3 SECS
[2018-07-24 01:25] LABS: Albumin 3.6 G/DL (3.4-5.0); Bilirubin,Total 0.4 MG/DL (0.2-1.0); Calcium 9.3 MG/DL (8.5-10.1); Osmolality,Calculated 284.5 MOS/KG (273-304); Total Protein 7.4 G/DL (6.4-8.3)
[2018-07-24 01:35] LABS: Apearance,Urine CLEAR (Clear); Bilirubin,Urine Negative (Negative); Blood, Urine Negative (Negative); Glucose,Urine (UA) Negative (Negative); Ketones,Urine Negative (Negative); Mucus,Urine Occasional /LPF (Occasional); Nitrite,Urine Negative (Negative); Protein,Urine 100 MG/DL; RBC,Urine <1 /HPF (0-4); Squamous Epithelial Cell,Urine Occasional /HPF (0-10); Urine Color Yellow (Yellow); Urine Specific Gravity 1.014 (1.001-1.035); Urine Urobilinogen < 2.0 EU/DL (0.2-1.0); WBC,Urine 1 /HPF (0-6)
[2018-07-24] MEDS ORDERED: ACETAMINOPHEN 500 MG TABLET PO STA (02:05)
[2018-07-24] MEDS ORDERED: DEXTROSE 50% 25 GM/50 ML SYRINGE IV PRN ×2 (02:56→03:19)
[2018-07-24] MEDS ORDERED: GLUCAGON 1 MG VIAL IM PRN ×2 (02:56→13:10)
[2018-07-24] MEDS ORDERED: SODIUM CHLORIDE 0.9% 500 ML IV SCH (03:00)
[2018-07-24] MEDS ORDERED: diphenhydrAMINE CAP 25 MG CAPSULE PO PRN (03:02)
[2018-07-24] MEDS ORDERED: NICOTINE 21 MG/24 HR PATCH TRANSDERM PRN (03:02)
[2018-07-24] MEDS ORDERED: ACETAMINOPHEN 325 MG TABLET PO PRN (03:02)
[2018-07-24 04:28] LABS: Basophils # 0.1 10*3/uL (0.0-0.2); Basophils % 0.7 % (0.0-0.8); Eosinophils # 0.1 10*3/uL (0.0-0.87); Eosinophils % 1.3 % (0.00-10.9); Hematocrit 30.6 VOL% (35.7-47.0); Hemoglobin 9.2 GM/DL (12.0-16.0); Immature Granulocytes % 0.4 %; Immature Granulocytes Absolute 0.04 #; Lymphocytes # 2.5 10*3/uL (1.4-4.0); Lymphocytes % 25.3 % (21.3-54.2); Mean Corpuscular HGB Conc 30.1 GM/DL (32-36); Mean Corpuscular Volume 86.4 FL (87-102); Mean Platelet Volume 11.9 FL (9.6-12.0); Monocytes % 9.8 % (1.7-12.7); Neutrophils % 62.5 % (38.7-73.9); Platelet Count 237 T/CUMM (130-400); Red Blood Count 3.54 MC/CUMM (3.8-5.5); Red Cell Distribution Width 14.4 % (9.3-17.3); White Blood Count 9.8 T/CUMM (4-12)
[2018-07-24] MEDS ORDERED: VANCOMYCIN INJ 1,000 MG in SODIUM CHLORIDE 0.9% 250 ML IV ONE ×2 (05:00→07:30)
[2018-07-24 05:08] LABS: Albumin 3.1 G/DL (3.4-5.0); Bilirubin,Total 1.2 MG/DL (0.2-1.0); Osmolality,Calculated 282.5 MOS/KG (273-304); Total Protein 6.7 G/DL (6.4-8.3)
[2018-07-24] MEDS ORDERED: ALBUTEROL/IPRATROPIUM 3 ML NEB RESP TX PRN (06:57)
[2018-07-24] MEDS ORDERED: LOSARTAN 50 MG TABLET PO SCH (09:00)
[2018-07-24] MEDS ORDERED: PANTOPRAZOLE 40 MG TABLET PO SCH (09:00)
[2018-07-24] MEDS ORDERED: NON-FORMULARY MEDICATION (Omeprazole 40 MG) PO SCH (09:00)
[2018-07-24] MEDS: cloNIDine 0.1 MG TABLET PO SCH ×3 (09:03→21:40)
[2018-07-24] MEDS: hydrALAZINE 25 MG TABLET PO SCH ×3 (09:03→21:40)
[2018-07-24] MEDS: ISOSORBIDE MONONITRATE 30 MG TABLET PO SCH (09:03)
[2018-07-24] MEDS ORDERED: BUPIVACAINE 0.5% 50 ML VIAL ONE (10:47)
[2018-07-24] MEDS ORDERED: LIDOCAINE 1% 20 ML VIAL ONE (10:47)
[2018-07-24] MEDS ORDERED: PROPOFOL 200 MG/20 ML VIAL IV ONE (11:51)
[2018-07-24] MEDS ORDERED: fentaNYL 100 MCG/2 ML VIAL ONE (11:52)
[2018-07-24] MEDS ORDERED: KETAMINE 500 MG/10 ML VIAL ONE (11:52)
[2018-07-24] MEDS ORDERED: MIDAZOLAM 2 MG/2 ML VIAL ONE (11:52)
[2018-07-24] MEDS ORDERED: DEXTROSE 50% 25 GM/50 ML VIAL IV PRN (13:10)
[2018-07-24] MEDS: PIPERACILLIN/TAZOBACTAM 3,375 MG in SODIUM CHLORIDE 0.9% 100 ML IV SCH ×2 (14:58→18:50)
[2018-07-24] MEDS ORDERED: ONDANSETRON 4 MG/2 ML VIAL IV PRN (15:01)
[2018-07-24] MEDS: buPROPion XL 150 MG TABLET PO SCH (16:45)
[2018-07-24] MEDS: MORPHINE 4 MG/1 ML VIAL IV PRN ×2 (16:46→21:40)
[2018-07-24] MEDS: GABAPENTIN 300 MG CAPSULE PO SCH ×2 (17:07→21:40)
[2018-07-24] MEDS: ATORVASTATIN 20 MG TABLET PO SCH (17:08)
[2018-07-24] MEDS ORDERED: WARFARIN 2 MG TABLET PO SCH (18:00)
[2018-07-24] MEDS: WARFARIN 2 MG TABLET PO SCH (18:49)
[2018-07-25] MEDS: PIPERACILLIN/TAZOBACTAM 3,375 MG in SODIUM CHLORIDE 0.9% 100 ML IV SCH ×3 (01:06→17:26)
[2018-07-25 04:54] LABS: Basophils # 0.1 10*3/uL (0.0-0.2); Basophils % 0.8 % (0.0-0.8); Eosinophils # 0.2 10*3/uL (0.0-0.87); Eosinophils % 3.5 % (0.00-10.9); Hematocrit 28.3 VOL% (35.7-47.0); Hemoglobin 8.4 GM/DL (12.0-16.0); Immature Granulocytes % 0.3 %; Immature Granulocytes Absolute 0.02 #; Lymphocytes # 1.9 10*3/uL (1.4-4.0); Lymphocytes % 30.4 % (21.3-54.2); Mean Corpuscular HGB Conc 29.7 GM/DL (32-36); Mean Platelet Volume 12.1 FL (9.6-12.0); Monocytes % 9.9 % (1.7-12.7); Neutrophils % 55.1 % (38.7-73.9); Platelet Count 217 T/CUMM (130-400); Red Blood Count 3.18 MC/CUMM (3.8-5.5); Red Cell Distribution Width 14.3 % (9.3-17.3); White Blood Count 6.4 T/CUMM (4-12)
[2018-07-25] MEDS: VANCOMYCIN INJ 1,500 MG in SODIUM CHLORIDE 0.9% 500 ML IV SCH (05:06)
[2018-07-25 05:18] LABS: Calcium 8.6 MG/DL (8.5-10.1); Osmolality,Calculated 291.4 MOS/KG (273-304)
[2018-07-25] MEDS: hydrALAZINE 25 MG TABLET PO SCH ×3 (08:33→20:59)
[2018-07-25] MEDS: cloNIDine 0.1 MG TABLET PO SCH ×3 (08:33→20:59)
[2018-07-25] MEDS: GABAPENTIN 300 MG CAPSULE PO SCH ×2 (08:34→20:59)
[2018-07-25] MEDS: ISOSORBIDE MONONITRATE 30 MG TABLET PO SCH (08:34)
[2018-07-25] MEDS: ATORVASTATIN 20 MG TABLET PO SCH (08:34)
[2018-07-25] MEDS: buPROPion XL 150 MG TABLET PO SCH (08:34)
[2018-07-25] MEDS ORDERED: ACETAMINOPHEN 325 MG TABLET PO PRN (14:19)
[2018-07-25] MEDS: SODIUM CHLORIDE 0.9% 1,000 ML IV SCH (14:27)
[2018-07-25] MEDS: SKIN HEALING OINT (AQUAPHOR) 50 GM TUBE TOP SCH (14:27)
[2018-07-25] MEDS: WARFARIN 2 MG TABLET PO SCH (17:26)
[2018-07-25] MEDS: INSULIN REGULAR 100 UNIT/ML SUBCUT SCH (20:59)
[2018-07-26] MEDS: PIPERACILLIN/TAZOBACTAM 3,375 MG in SODIUM CHLORIDE 0.9% 100 ML IV SCH ×2 (01:01→10:05)
[2018-07-26 04:39] LABS: Basophils % 0.7 % (0.0-0.8); Eosinophils # 0.3 10*3/uL (0.0-0.87); Eosinophils % 4.4 % (0.00-10.9); Hematocrit 29.3 VOL% (35.7-47.0); Hemoglobin 8.6 GM/DL (12.0-16.0); Immature Granulocytes % 0.4 %; Immature Granulocytes Absolute 0.02 #; Lymphocytes % 35.8 % (21.3-54.2); Mean Corpuscular HGB Conc 29.4 GM/DL (32-36); Mean Corpuscular Volume 89.1 FL (87-102); Mean Platelet Volume 11.9 FL (9.6-12.0); Monocytes % 6.4 % (1.7-12.7); Neutrophils % 52.3 % (38.7-73.9); Platelet Count 242 T/CUMM (130-400); Red Blood Count 3.29 MC/CUMM (3.8-5.5); Red Cell Distribution Width 14.3 % (9.3-17.3); White Blood Count 5.6 T/CUMM (4-12)
[2018-07-26 04:46] LABS: PT Patient Result 11.2 SECS
[2018-07-26] MEDS: VANCOMYCIN INJ 1,500 MG in SODIUM CHLORIDE 0.9% 500 ML IV SCH (05:01)
[2018-07-26 05:29] LABS: Calcium 8.9 MG/DL (8.5-10.1); Osmolality,Calculated 290.3 MOS/KG (273-304)
[2018-07-26] MEDS: INSULIN REGULAR 100 UNIT/ML SUBCUT SCH ×2 (07:28→11:40)
[2018-07-26] MEDS ORDERED: SODIUM HYPOCHLORITE 0.25% IRRIG 473 ML BOTTLE TOP SCH (09:00)
[2018-07-26] MEDS ORDERED: CHLORHEXIDINE 4% SOLN 118 ML BOTTLE TOP SCH (09:00)
[2018-07-26] MEDS: ISOSORBIDE MONONITRATE 30 MG TABLET PO SCH (09:55)
[2018-07-26] MEDS: GABAPENTIN 300 MG CAPSULE PO SCH (09:55)
[2018-07-26] MEDS: ATORVASTATIN 20 MG TABLET PO SCH (09:55)
[2018-07-26] MEDS: buPROPion XL 150 MG TABLET PO SCH (09:56)
[2018-07-26] MEDS: SKIN HEALING OINT (AQUAPHOR) 50 GM TUBE TOP SCH (09:56)
[2018-07-26] MEDS: cloNIDine 0.1 MG TABLET PO SCH (09:56)
[2018-07-26] MEDS: hydrALAZINE 25 MG TABLET PO SCH (09:56)
[2018-07-26] MEDS: SODIUM CHLORIDE 0.9% 1,000 ML IV SCH (10:05)
[2018-07-26] MEDS ORDERED: WARFARIN 5 MG TABLET PO ONE (10:56)
[2018-07-26 11:20] VITALS: BP 161/79
== END 2018-07-26 12:45 | disposition home health service (06) | DRG 240 ==
LOC: N.ED 20:39 → N.EDINP 07-24 02:56 → N.3E 07-24 03:34
PROVIDERS: ADMIT Internal Medicine; ATTEND Internal Medicine

== ENCOUNTER 2018-12-29 12:31 | Inpatient (IN) ==
[2018-12-29] MEDS ORDERED: AZITHROMYCIN INJ 500 MG in SODIUM CHLORIDE 0.9% 250 ML IV STA (12:47)
[2018-12-29] MEDS ORDERED: methylPREDNISolone SOD SUC 125 MG/2 ML VIAL IV STA (12:47)
[2018-12-29] MEDS ORDERED: cefTRIAXone 1,000 MG in SODIUM CHLORIDE 0.9% 100 ML IV STA (12:47)
[2018-12-29] MEDS ORDERED: ONDANSETRON 4 MG/2 ML VIAL IV STA (12:47)
[2018-12-29] MEDS ORDERED: ALBUTEROL 2.5 MG/3 ML NEB RESP TX SCH (13:00)
[2018-12-29 13:20] LABS: Basophils # 0.1 10*3/uL (0.0-0.2); Basophils % 0.9 % (0.0-0.8); Eosinophils # 0.5 10*3/uL (0.0-0.87); Eosinophils % 3.6 % (0.00-10.9); Hematocrit 27.8 VOL% (35.7-47.0); Hemoglobin 8.2 GM/DL (12.0-16.0); Immature Granulocytes % 0.7 %; Immature Granulocytes Absolute 0.09 #; Lymphocytes # 0.7 10*3/uL (1.4-4.0); Lymphocytes % 5.4 % (21.3-54.2); Mean Corpuscular HGB Conc 29.5 GM/DL (32-36); Mean Corpuscular Volume 85.8 FL (87-102); Mean Platelet Volume 11.6 FL (9.6-12.0); Monocytes % 5.1 % (1.7-12.7); Neutrophils % 84.3 % (38.7-73.9); Platelet Count 403 T/CUMM (130-400); Red Blood Count 3.24 MC/CUMM (3.8-5.5); Red Cell Distribution Width 15.1 % (9.3-17.3); White Blood Count 13.2 T/CUMM (4-12)
[2018-12-29 13:40] LABS: CKMB % 3.9 %; Troponin I < 0.015 NG/ML (0.00-0.045)
[2018-12-29 13:41] LABS: INR 4.5
[2018-12-29 13:47] LABS: PT Patient Result 48.6 SECS (9.6-12.2); Partial Thromboplastin Time 62.7 SECS (20.8-36.0)
[2018-12-29 13:52] LABS: Albumin 2.8 G/DL (3.4-5.0); Bilirubin,Total 0.4 MG/DL (0.2-1.0); Calcium 9.6 MG/DL (8.5-10.1); Osmolality,Calculated 281.8 MOS/KG (273-304); Total Protein 7.7 G/DL (6.4-8.3)
[2018-12-29] MEDS ORDERED: DEXTROSE 50% 25 GM/50 ML VIAL IV PRN (14:13)
[2018-12-29] MEDS ORDERED: GLUCAGON 1 MG VIAL IM PRN (14:13)
[2018-12-29] MEDS ORDERED: PROMETHAZINE 25 MG/1 ML VIAL IM PRN (14:13)
[2018-12-29] MEDS ORDERED: FUROSEMIDE 40 MG/4 ML VIAL IV STA (14:16)
[2018-12-29] MEDS ORDERED: hydrALAZINE 25 MG TABLET PO PRN (14:17)
[2018-12-29] MEDS ORDERED: POTASSIUM CHLORIDE 20 MEQ TABLET PO PRN (14:17)
[2018-12-29] MEDS ORDERED: ALBUTEROL/IPRATROPIUM 3 ML NEB RESP TX PRN (14:17)
[2018-12-29] MEDS ORDERED: FUROSEMIDE 20 MG TABLET PO PRN (14:17)
[2018-12-29] MEDS ORDERED: ALBUTEROL 2.5 MG/3 ML NEB RESP TX PRN (14:17)
[2018-12-29 15:35] LABS: Free T4 (Free Thyroxine) 0.8 NG/DL (0.76-1.46)
[2018-12-29] MEDS: INSULIN ASPART PROTAMINE/ASPART 70/30 100 UNIT/ML SUBCUT SCH (16:25)
[2018-12-29] MEDS: INSULIN REGULAR 100 UNIT/ML SUBCUT SCH ×2 (16:26→21:04)
[2018-12-29] MEDS: ACETAMINOPHEN 325 MG TABLET PO PRN (16:27)
[2018-12-29] MEDS: cloNIDine 0.1 MG TABLET PO SCH ×2 (16:27→21:06)
[2018-12-29 16:49] LABS: Apearance,Urine CLEAR (Clear); Bilirubin,Urine Negative (Negative); Blood, Urine Small mg/dL (Negative); Glucose,Urine (UA) Negative (Negative); Ketones,Urine Negative (Negative); Mucus,Urine Occasional /LPF (Occasional); Nitrite,Urine Negative (Negative); Protein,Urine 100 MG/DL; RBC,Urine 1 /HPF (0-4); Squamous Epithelial Cell,Urine Occasional /HPF (0-10); Urine Color Yellow (Yellow); Urine Specific Gravity 1.015 (1.001-1.035); Urine Urobilinogen < 2.0 EU/DL (0.2-1.0); WBC,Urine 1 /HPF (0-6)
[2018-12-29] MEDS: PIPERACILLIN/TAZOBACTAM 3,375 MG in SODIUM CHLORIDE 0.9% 100 ML IV SCH (16:53)
[2018-12-29] MEDS: ALBUTEROL/IPRATROPIUM 3 ML NEB RESP TX SCH (19:01)
[2018-12-29] MEDS: DORNASE ALFA 2.5 MG/2.5 ML VIAL RESP TX SCH (19:10)
[2018-12-29] MEDS ORDERED: ENOXAPARIN 30 MG/0.3 ML SYRINGE SUBCUT SCH (21:00)
[2018-12-29] MEDS: TOPIRAMATE 100 MG TABLET PO SCH (21:05)
[2018-12-29] MEDS: INSULIN GLARGINE 100 UNIT/ML SUBCUT SCH (21:05)
[2018-12-29] MEDS: SERTRALINE 50 MG TABLET PO SCH (21:06)
[2018-12-29] MEDS: GABAPENTIN 300 MG CAPSULE PO SCH (21:06)
[2018-12-29] MEDS: LEVOFLOXACIN INJ 750 MG in PREMIX 1 EACH IV SCH (21:12)
[2018-12-29] MEDS: BUDESONIDE/FORMOTEROL 160-4.5 INHALER 6 GM INH SCH (23:02)
[2018-12-29] MEDS: methylPREDNISolone SOD SUC 40 MG/1 ML VIAL IV SCH (23:03)
[2018-12-29] MEDS: VANCOMYCIN INJ 1,500 MG in SODIUM CHLORIDE 0.9% 500 ML IV SCH (23:03)
[2018-12-30] MEDS: ALBUTEROL/IPRATROPIUM 3 ML NEB RESP TX SCH ×4 (00:40→19:10)
[2018-12-30] MEDS: PIPERACILLIN/TAZOBACTAM 3,375 MG in SODIUM CHLORIDE 0.9% 100 ML IV SCH ×3 (01:35→16:53)
[2018-12-30] MEDS: ACETAMINOPHEN 325 MG TABLET PO PRN ×2 (02:06→16:55)
[2018-12-30 04:46] LABS: Basophils % 0.3 % (0.0-0.8); Hematocrit 27.9 VOL% (35.7-47.0); Hemoglobin 8.2 GM/DL (12.0-16.0); Immature Granulocytes % 0.5 %; Immature Granulocytes Absolute 0.05 #; Lymphocytes # 0.8 10*3/uL (1.4-4.0); Lymphocytes % 8.2 % (21.3-54.2); Mean Corpuscular HGB Conc 29.4 GM/DL (32-36); Mean Corpuscular Volume 86.4 FL (87-102); Mean Platelet Volume 12.2 FL (9.6-12.0); Monocytes % 1.1 % (1.7-12.7); Neutrophils % 89.9 % (38.7-73.9); Platelet Count 423 T/CUMM (130-400); Red Blood Count 3.23 MC/CUMM (3.8-5.5); Red Cell Distribution Width 14.9 % (9.3-17.3); White Blood Count 10.3 T/CUMM (4-12)
[2018-12-30 04:58] LABS: Alanine Aminotransferase 34 U/L (13-56); Albumin 2.6 G/DL (3.4-5.0); Alkaline Phosphatase 92 U/L (45-117); Aspartate Amino Transferase 16 U/L (0-37); Bilirubin,Total < 0.39 MG/DL (0.2-1.0); Blood Urea Nitrogen 35 MG/DL (7-18); Calcium 9.6 MG/DL (8.5-10.1); Estimated Glom Filtration Rate 27 ML/MIN; Glucose 444 MG/DL (74-106); HDL Cholesterol 39 MG/DL (40-60); Osmolality,Calculated 294.2 MOS/KG (273-304); Risk Ratio 3.79; Total Protein 7.3 G/DL (6.4-8.3); Triglycerides 179 MG/DL (2-150); VLDL CHOLESTEROL 35.8 MG/DL
[2018-12-30] MEDS: INSULIN REGULAR 100 UNIT/ML SUBCUT SCH ×5 (05:39→21:12)
[2018-12-30 06:54] LABS: PT Patient Result 56.7 SECS (9.6-12.2)
[2018-12-30 06:55] LABS: INR 5.3
[2018-12-30] MEDS: DORNASE ALFA 2.5 MG/2.5 ML VIAL RESP TX SCH ×2 (08:17→19:10)
[2018-12-30] MEDS ORDERED: cefTRIAXone 1,000 MG in SYRINGE 1 EACH IV SCH (09:00)
[2018-12-30] MEDS ORDERED: PANTOPRAZOLE 40 MG TABLET PO SCH (09:00)
[2018-12-30] MEDS ORDERED: PHYTONADIONE 5 MG/5 ML ORAL.SYR PO ONE (09:00)
[2018-12-30] MEDS ORDERED: CYANOCOBALAMIN 1000 MCG/1 ML VIAL IM SCH (09:00)
[2018-12-30] MEDS: buPROPion XL 150 MG TABLET PO SCH (09:22)
[2018-12-30] MEDS: GABAPENTIN 300 MG CAPSULE PO SCH ×2 (09:22→21:12)
[2018-12-30] MEDS: PANTOPRAZOLE 40 MG TABLET PO SCH (09:22)
[2018-12-30] MEDS: FENOFIBRATE 145 MG TABLET PO SCH (09:22)
[2018-12-30] MEDS: ATORVASTATIN 20 MG TABLET PO SCH (09:23)
[2018-12-30] MEDS: cloNIDine 0.1 MG TABLET PO SCH ×3 (09:23→21:12)
[2018-12-30] MEDS: ISOSORBIDE MONONITRATE 30 MG TABLET PO SCH (09:23)
[2018-12-30] MEDS: methylPREDNISolone SOD SUC 40 MG/1 ML VIAL IV SCH ×2 (09:28→11:24)
[2018-12-30] MEDS: INSULIN ASPART PROTAMINE/ASPART 70/30 100 UNIT/ML SUBCUT SCH ×2 (09:31→16:51)
[2018-12-30] MEDS ORDERED: AZITHROMYCIN INJ 500 MG in SODIUM CHLORIDE 0.9% 250 ML IV SCH (10:00)
[2018-12-30] MEDS: SODIUM CHLORIDE 0.9% 1,000 ML IV SCH (10:03)
[2018-12-30] MEDS: BUDESONIDE/FORMOTEROL 160-4.5 INHALER 6 GM INH SCH ×2 (10:03→21:12)
[2018-12-30] MEDS ORDERED: VANCOMYCIN INJ 1,500 MG in SODIUM CHLORIDE 0.9% 500 ML IV SCH (11:00)
[2018-12-30] MEDS ORDERED: WARFARIN 4 MG TABLET PO SCH (18:00)
[2018-12-30] MEDS: INSULIN GLARGINE 100 UNIT/ML SUBCUT SCH (21:11)
[2018-12-30] MEDS: TOPIRAMATE 100 MG TABLET PO SCH (21:12)
[2018-12-30] MEDS: SERTRALINE 50 MG TABLET PO SCH (21:12)
[2018-12-31] MEDS: methylPREDNISolone SOD SUC 40 MG/1 ML VIAL IV SCH ×3 (00:28→20:03)
[2018-12-31] MEDS: ACETAMINOPHEN 325 MG TABLET PO PRN (00:28)
[2018-12-31] MEDS: ALBUTEROL/IPRATROPIUM 3 ML NEB RESP TX SCH ×4 (01:08→19:43)
[2018-12-31] MEDS: INSULIN REGULAR 100 UNIT/ML SUBCUT SCH ×6 (01:38→20:02)
[2018-12-31] MEDS: ONDANSETRON 4 MG/2 ML VIAL IV PRN (02:22)
[2018-12-31] MEDS: PIPERACILLIN/TAZOBACTAM 3,375 MG in SODIUM CHLORIDE 0.9% 100 ML IV SCH ×4 (02:22→20:08)
[2018-12-31] MEDS: VANCOMYCIN INJ 1,500 MG in SODIUM CHLORIDE 0.9% 500 ML IV SCH (02:30)
[2018-12-31 05:18] LABS: Calcium 9.8 MG/DL (8.5-10.1); Osmolality,Calculated 289.4 MOS/KG (273-304)
[2018-12-31 05:32] LABS: Basophils # 0.1 10*3/uL (0.0-0.2); Basophils % 0.4 % (0.0-0.8); Eosinophils % 0.1 % (0.00-10.9); Hematocrit 24.9 VOL% (35.7-47.0); Hemoglobin 7.2 GM/DL (12.0-16.0); Immature Granulocytes % 0.8 %; Immature Granulocytes Absolute 0.09 #; Lymphocytes # 1.5 10*3/uL (1.4-4.0); Lymphocytes % 12.5 % (21.3-54.2); Mean Corpuscular HGB Conc 28.9 GM/DL (32-36); Mean Corpuscular Volume 86.5 FL (87-102); Mean Platelet Volume 11.6 FL (9.6-12.0); Monocytes % 3.8 % (1.7-12.7); Neutrophils % 82.4 % (38.7-73.9); Platelet Count 400 T/CUMM (130-400); Red Blood Count 2.88 MC/CUMM (3.8-5.5); Red Cell Distribution Width 15.2 % (9.3-17.3); White Blood Count 11.6 T/CUMM (4-12)
[2018-12-31 05:38] LABS: INR 1.9
[2018-12-31 05:53] LABS: Hypochromasia 1+; Microcytosis 1+
[2018-12-31 05:54] LABS: Ovalocytes Few; Platelet Estimate Increased; Polychromasia Slight
[2018-12-31] MEDS: DORNASE ALFA 2.5 MG/2.5 ML VIAL RESP TX SCH ×2 (07:28→19:50)
[2018-12-31] MEDS: ATORVASTATIN 20 MG TABLET PO SCH (08:55)
[2018-12-31] MEDS: cloNIDine 0.1 MG TABLET PO SCH ×3 (08:56→20:02)
[2018-12-31] MEDS: ISOSORBIDE MONONITRATE 30 MG TABLET PO SCH (08:56)
[2018-12-31] MEDS: PANTOPRAZOLE 40 MG TABLET PO SCH (08:56)
[2018-12-31] MEDS: buPROPion XL 150 MG TABLET PO SCH (08:57)
[2018-12-31] MEDS: INSULIN ASPART PROTAMINE/ASPART 70/30 100 UNIT/ML SUBCUT SCH ×2 (08:57→15:42)
[2018-12-31] MEDS: FENOFIBRATE 145 MG TABLET PO SCH (08:59)
[2018-12-31] MEDS: GABAPENTIN 300 MG CAPSULE PO SCH ×2 (09:06→20:02)
[2018-12-31] MEDS: SODIUM CHLORIDE 0.9% 1,000 ML IV SCH ×2 (10:22→10:40)
[2018-12-31] MEDS: BUDESONIDE/FORMOTEROL 160-4.5 INHALER 6 GM INH SCH ×2 (13:42→21:41)
[2018-12-31] MEDS: WARFARIN 5 MG TABLET PO SCH (18:14)
[2018-12-31] MEDS: TOPIRAMATE 100 MG TABLET PO SCH (20:02)
[2018-12-31] MEDS: SERTRALINE 50 MG TABLET PO SCH (20:02)
[2018-12-31] MEDS: INSULIN GLARGINE 100 UNIT/ML SUBCUT SCH (20:03)
[2019-01-01] MEDS: INSULIN REGULAR 100 UNIT/ML SUBCUT SCH ×6 (00:42→20:37)
[2019-01-01] MEDS: LEVOFLOXACIN INJ 750 MG in PREMIX 1 EACH IV SCH (01:38)
[2019-01-01] MEDS: ALBUTEROL/IPRATROPIUM 3 ML NEB RESP TX SCH ×4 (01:46→19:21)
[2019-01-01 03:06] LABS: Basophils # 0.1 10*3/uL (0.0-0.2); Basophils % 0.6 % (0.0-0.8); Eosinophils % 0.2 % (0.00-10.9); Hematocrit 23.7 VOL% (35.7-47.0); Hemoglobin 6.9 GM/DL (12.0-16.0); Immature Granulocytes % 1.1 %; Immature Granulocytes Absolute 0.09 #; Lymphocytes # 1.3 10*3/uL (1.4-4.0); Lymphocytes % 14.9 % (21.3-54.2); Mean Corpuscular HGB Conc 29.1 GM/DL (32-36); Mean Corpuscular Volume 87.1 FL (87-102); Mean Platelet Volume 11.6 FL (9.6-12.0); Neutrophils % 78.2 % (38.7-73.9); Platelet Count 411 T/CUMM (130-400); Red Blood Count 2.72 MC/CUMM (3.8-5.5); Red Cell Distribution Width 15.6 % (9.3-17.3); White Blood Count 8.4 T/CUMM (4-12)
[2019-01-01 03:19] LABS: Calcium 9.1 MG/DL (8.5-10.1); Osmolality,Calculated 293.4 MOS/KG (273-304)
[2019-01-01 03:22] LABS: INR 1.3; PT Patient Result 14.5 SECS (9.6-12.2)
[2019-01-01] MEDS: VANCOMYCIN INJ 1,500 MG in SODIUM CHLORIDE 0.9% 500 ML IV SCH (03:30)
[2019-01-01] MEDS: PIPERACILLIN/TAZOBACTAM 3,375 MG in SODIUM CHLORIDE 0.9% 100 ML IV SCH (05:41)
[2019-01-01] MEDS: DORNASE ALFA 2.5 MG/2.5 ML VIAL RESP TX SCH ×2 (07:10→19:28)
[2019-01-01 07:25] LABS: % Iron Saturation 11.5 % (18-50); Ferritin 180.1 ng/ml (8-252)
[2019-01-01 08:48] LABS: Folate 3.2 NG/ML (5.4-24.0); Vitamin B12 > 2000 PG/ML (211-911)
[2019-01-01] MEDS ORDERED: ENOXAPARIN 100 MG/ML SYRINGE SUBCUT SCH (09:00)
[2019-01-01] MEDS ORDERED: SODIUM CHLORIDE 0.9% 1,000 ML IV PRN (09:14)
[2019-01-01] MEDS: cloNIDine 0.1 MG TABLET PO SCH ×3 (09:37→20:33)
[2019-01-01] MEDS: PANTOPRAZOLE 40 MG TABLET PO SCH (09:37)
[2019-01-01] MEDS: ATORVASTATIN 20 MG TABLET PO SCH (09:37)
[2019-01-01] MEDS: buPROPion XL 150 MG TABLET PO SCH (09:37)
[2019-01-01] MEDS: ISOSORBIDE MONONITRATE 30 MG TABLET PO SCH (09:37)
[2019-01-01] MEDS: GABAPENTIN 300 MG CAPSULE PO SCH ×2 (09:37→20:33)
[2019-01-01] MEDS: FENOFIBRATE 145 MG TABLET PO SCH (09:39)
[2019-01-01] MEDS: methylPREDNISolone SOD SUC 40 MG/1 ML VIAL IV SCH ×2 (09:39→20:35)
[2019-01-01] MEDS: INSULIN ASPART PROTAMINE/ASPART 70/30 100 UNIT/ML SUBCUT SCH ×2 (09:40→16:35)
[2019-01-01] MEDS: BUDESONIDE/FORMOTEROL 160-4.5 INHALER 6 GM INH SCH ×2 (09:50→21:13)
[2019-01-01] MEDS: ACETAMINOPHEN 325 MG TABLET PO PRN (16:33)
[2019-01-01] MEDS: ONDANSETRON 4 MG/2 ML VIAL IV PRN (16:35)
[2019-01-01 18:33] LABS: Hemoglobin 8.1 GM/DL (12.0-16.0)
[2019-01-01] MEDS: WARFARIN 5 MG TABLET PO SCH (18:33)
[2019-01-01] MEDS: TOPIRAMATE 100 MG TABLET PO SCH (20:33)
[2019-01-01] MEDS: SERTRALINE 50 MG TABLET PO SCH (20:33)
[2019-01-01] MEDS: INSULIN GLARGINE 100 UNIT/ML SUBCUT SCH (20:38)
[2019-01-02] MEDS: SODIUM CHLORIDE 0.9% 1,000 ML IV SCH ×2 (00:10→17:21)
[2019-01-02] MEDS: INSULIN REGULAR 100 UNIT/ML SUBCUT SCH ×6 (00:15→21:05)
[2019-01-02] MEDS: ALBUTEROL/IPRATROPIUM 3 ML NEB RESP TX SCH ×4 (00:24→20:11)
[2019-01-02] MEDS: VANCOMYCIN INJ 1,500 MG in SODIUM CHLORIDE 0.9% 500 ML IV SCH (03:20)
[2019-01-02 03:34] LABS: Basophils # 0.1 10*3/uL (0.0-0.2); Basophils % 1.2 % (0.0-0.8); Eosinophils # 0.1 10*3/uL (0.0-0.87); Eosinophils % 1.2 % (0.00-10.9); Hematocrit 22.8 VOL% (35.7-47.0); Hemoglobin 6.9 GM/DL (12.0-16.0); Immature Granulocytes % 1.4 %; Immature Granulocytes Absolute 0.08 #; Lymphocytes # 1.2 10*3/uL (1.4-4.0); Lymphocytes % 19.8 % (21.3-54.2); Mean Corpuscular HGB Conc 30.3 GM/DL (32-36); Mean Corpuscular Volume 87.4 FL (87-102); Mean Platelet Volume 11.1 FL (9.6-12.0); Monocytes % 6.6 % (1.7-12.7); Neutrophils % 69.8 % (38.7-73.9); Platelet Count 347 T/CUMM (130-400); Red Blood Count 2.61 MC/CUMM (3.8-5.5); Red Cell Distribution Width 15.9 % (9.3-17.3); White Blood Count 5.9 T/CUMM (4-12)
[2019-01-02 03:49] LABS: Calcium 7.2 MG/DL (8.5-10.1); Osmolality,Calculated 296.6 MOS/KG (273-304)
[2019-01-02] MEDS: DORNASE ALFA 2.5 MG/2.5 ML VIAL RESP TX SCH ×2 (07:06→20:11)
[2019-01-02 07:51] LABS: INR 1.6; PT Patient Result 16.9 SECS (9.6-12.2)
[2019-01-02] MEDS: FENOFIBRATE 145 MG TABLET PO SCH (08:15)
[2019-01-02] MEDS: PANTOPRAZOLE 40 MG TABLET PO SCH (08:16)
[2019-01-02] MEDS: buPROPion XL 150 MG TABLET PO SCH (08:16)
[2019-01-02] MEDS: cloNIDine 0.1 MG TABLET PO SCH ×3 (08:16→22:08)
[2019-01-02] MEDS: GABAPENTIN 300 MG CAPSULE PO SCH ×2 (08:16→22:07)
[2019-01-02] MEDS: ISOSORBIDE MONONITRATE 30 MG TABLET PO SCH (08:16)
[2019-01-02] MEDS: methylPREDNISolone SOD SUC 40 MG/1 ML VIAL IV SCH ×2 (08:17→22:06)
[2019-01-02] MEDS: INSULIN ASPART PROTAMINE/ASPART 70/30 100 UNIT/ML SUBCUT SCH ×2 (08:18→17:01)
[2019-01-02] MEDS: BUDESONIDE/FORMOTEROL 160-4.5 INHALER 6 GM INH SCH ×2 (08:25→22:06)
[2019-01-02] MEDS: ATORVASTATIN 20 MG TABLET PO SCH (09:42)
[2019-01-02] MEDS: ENOXAPARIN 100 MG/ML SYRINGE SUBCUT SCH ×2 (09:43→22:06)
[2019-01-02] MEDS: ONDANSETRON 4 MG/2 ML VIAL IV PRN (11:30)
[2019-01-02] MEDS ORDERED: MAGNESIUM SULF RIDER 4 GM in PREMIX 1 EACH IV ONE (15:00)
[2019-01-02] MEDS: WARFARIN 5 MG TABLET PO SCH (18:09)
[2019-01-02] MEDS: INSULIN GLARGINE 100 UNIT/ML SUBCUT SCH (22:06)
[2019-01-02] MEDS: TOPIRAMATE 100 MG TABLET PO SCH (22:07)
[2019-01-02] MEDS: SERTRALINE 50 MG TABLET PO SCH (22:08)
[2019-01-03] MEDS: ALBUTEROL/IPRATROPIUM 3 ML NEB RESP TX SCH ×2 (00:55→07:21)
[2019-01-03] MEDS: LEVOFLOXACIN INJ 750 MG in PREMIX 1 EACH IV SCH (01:01)
[2019-01-03] MEDS: INSULIN REGULAR 100 UNIT/ML SUBCUT SCH ×4 (01:26→11:56)
[2019-01-03] MEDS: VANCOMYCIN INJ 1,500 MG in SODIUM CHLORIDE 0.9% 500 ML IV SCH (03:47)
[2019-01-03 06:20] LABS: Hematocrit 35.1 VOL% (35.7-47.0); Hemoglobin 10.8 GM/DL (12.0-16.0)
[2019-01-03] MEDS: DORNASE ALFA 2.5 MG/2.5 ML VIAL RESP TX SCH (07:25)
[2019-01-03] MEDS: GABAPENTIN 300 MG CAPSULE PO SCH (08:19)
[2019-01-03] MEDS: buPROPion XL 150 MG TABLET PO SCH (08:19)
[2019-01-03] MEDS: PANTOPRAZOLE 40 MG TABLET PO SCH (08:20)
[2019-01-03] MEDS: FENOFIBRATE 145 MG TABLET PO SCH (08:20)
[2019-01-03] MEDS: ATORVASTATIN 20 MG TABLET PO SCH (08:20)
[2019-01-03] MEDS: cloNIDine 0.1 MG TABLET PO SCH (08:20)
[2019-01-03] MEDS: ENOXAPARIN 100 MG/ML SYRINGE SUBCUT SCH (08:21)
[2019-01-03] MEDS: INSULIN ASPART PROTAMINE/ASPART 70/30 100 UNIT/ML SUBCUT SCH (08:22)
[2019-01-03] MEDS: methylPREDNISolone SOD SUC 40 MG/1 ML VIAL IV SCH (08:23)
[2019-01-03] MEDS: BUDESONIDE/FORMOTEROL 160-4.5 INHALER 6 GM INH SCH (08:23)
[2019-01-03] MEDS: ACETAMINOPHEN 325 MG TABLET PO PRN (08:50)
[2019-01-03] MEDS: ISOSORBIDE MONONITRATE 30 MG TABLET PO SCH (09:11)
[2019-01-03 11:43] VITALS: BP 168/80
== END 2019-01-03 13:53 | disposition home health service (06) | DRG 193 ==
LOC: N.EDINP 12:31 → N.ED 12:31 → N.2E 14:48 → SUATTDRO 12-30 12:28
PROVIDERS: ADMIT Internal Medicine; ATTEND Internal Medicine